=== PATIENT | female | born 1960 | race American Indian/Alaskan Native ===

== ENCOUNTER 2018-04-14 06:05 | Emergency (ER) | payer BC ==
[2018-04-14 17:24] VITALS: BP 156/88
[2018-04-14] MEDS ORDERED: ULTRAM PO ONE (17:33)
[2018-04-14] MEDS ORDERED: TESSALON PERLES PO ONE (17:33)
--- NOTE | 2018-04-14 17:45 | Emergency Department Report ---
ED General Adult HPI - General Chief complaint: Upper Respiratory Infection Time Seen by Provider: 04/14/18 17:04 Source: patient Mode of arrival: Ambulatory Limitations: No Limitations - History of Present Illness Initial comments: Patient presents to the emergency department with a chief complaint of a cough for the last week. Patient describes the cough has been productive in nature and denies fever. Patient states that she is coughed so much that she has chest pain with coughing now. Patient has no complaints -: Gradual Radiation: non-radiation Severity scale (0 -10): 4 Quality: aching, dull Consistency: constant Improves with: none Worsens with: none Associated Symptoms: denies other symptoms Treatments Prior to Arrival: none - Related Data Previous Rx's Medication Instructions Recorded Last Taken Type Cyclobenzaprine HCl [Flexeril 5mg] 5 mg PO TID #14 tablet 06/15/14 Unknown Rx HYDROcodone/APAP 5-325 [[place] 1 each PO Q6HR PRN #14 tablet 06/15/14 Unknown Rx 5/325] ALBUTEROL Inhaler(NF) [VENTOLIN 2 puff IH Q4HR PRN #1 inha 04/14/18 Unknown Rx Inhaler(NF)] Azithromycin [Zithromax Z-ELIZABET] 0 mg PO DAILY #6 tab 04/14/18 Unknown Rx Hydrocodone/Chlorphen P-Stirex 480 ml PO Q12HR PRN #10 merle.er.12h 04/14/18 Unknown Rx [Tussionex Pennkinetic Susp] predniSONE [Prednisone] 50 mg PO QDAY #5 tablet 04/14/18 Unknown Rx traMADol [Ultram] 50 mg PO Q4HR PRN #20 tablet 04/14/18 Unknown Rx Allergies Allergy/AdvReac Type Severity Reaction Status Date / Time codeine Allergy Vomiting Verified 06/15/14 12:58 ED Review of Systems ROS: Stated complaint: Other details as noted in HPI Comment: All other systems reviewed and negative Constitutional: denies: chills, fever Eyes: denies: eye pain, eye discharge, vision change ENT: denies: ear pain, throat pain Respiratory: cough. denies: shortness of breath, wheezing Cardiovascular: denies: chest pain, palpitations Endocrine: no symptoms reported Gastrointestinal: denies: abdominal pain, nausea, diarrhea Genitourinary: denies: urgency, dysuria, discharge Musculoskeletal: denies: back pain, joint swelling, arthralgia Skin: denies: rash, lesions Neurological: denies: headache, weakness, paresthesias Psychiatric: denies: anxiety, depression Hematological/Lymphatic: denies: easy bleeding, easy bruising ED Past Medical Hx - Past Medical History Hx Hypertension: Yes Additional medical history: high chol. - Surgical History Hx Cholecystectomy: Yes - Social History Smoking Status: Current Every Day Smoker Substance Use Type: None - Medications Home Medications: Home Medications Medication Instructions Recorded Confirmed Last Taken Type Cyclobenzaprine HCl [Flexeril 5mg] 5 mg PO TID #14 tablet 06/15/14 Unknown Rx HYDROcodone/APAP 5-325 [[place] 1 each PO Q6HR PRN #14 tablet 06/15/14 Unknown Rx 5/325] ALBUTEROL Inhaler(NF) [VENTOLIN 2 puff IH Q4HR PRN #1 inha 04/14/18 Unknown Rx Inhaler(NF)] Azithromycin [Zithromax Z-ELIZABET] 0 mg PO DAILY #6 tab 04/14/18 Unknown Rx Hydrocodone/Chlorphen P-Stirex 480 ml PO Q12HR PRN #10 merle.er.12h 04/14/18 Unknown Rx [Tussionex Pennkinetic Susp] predniSONE [Prednisone] 50 mg PO QDAY #5 tablet 04/14/18 Unknown Rx traMADol [Ultram] 50 mg PO Q4HR PRN #20 tablet 04/14/18 Unknown Rx ED Physical Exam - General Limitations: No Limitations General appearance: alert, in no apparent distress - Head Head exam: Present: atraumatic, normocephalic - Eye Eye exam: Present: normal appearance - ENT ENT exam: Present: mucous membranes moist - Neck Neck exam: Present: normal inspection - Respiratory Respiratory exam: Present: normal lung sounds bilaterally. Absent: respiratory distress, wheezes, rales - Cardiovascular Cardiovascular Exam: Present: regular rate, normal rhythm. Absent: systolic murmur, diastolic murmur, rubs, gallop - GI/Abdominal GI/Abdominal exam: Present: soft, normal bowel sounds - Extremities Exam Extremities exam: Present: normal inspection - Back Exam Back exam: Present: normal inspection - Neurological Exam Neurological exam: Present: alert, oriented X3, CN II-XII intact. Absent: motor sensory deficit - Psychiatric Psychiatric exam: Present: normal affect, normal mood - Skin Skin exam: Present: warm, dry, intact, normal color. Absent: rash ED Course Vital Signs 04/14/18 04/14/18 07:03 17:23 Temperature 99.0 F 99.1 F Pulse Rate 90 81 Respiratory 18 20 Rate Blood Pressure 170/99 Blood Pressure 156/88 [Right] O2 Sat by Pulse 96 95 Oximetry ED Medical Decision Making - Medical Decision Making Discussed plan of care with patient Discussed with patient the need to stop smoking Critical care attestation.: If time is entered above; I have spent that time in minutes in the direct care of this critically ill patient, excluding procedure time. ED Disposition Clinical Impression: Bronchitis, Encounter for smoking cessation counseling Disposition: TO HOME OR SELFCARE Is pt being admited?: No Does the pt Need Aspirin: No Condition: Stable Instructions: Chronic Bronchitis (ED), Acute Bronchitis (ED) Additional Instructions: return if worse Prescriptions: ALBUTEROL Inhaler(NF) [VENTOLIN Inhaler(NF)] 2 puff IH Q4HR PRN #1 inha PRN Reason: Wheezing Azithromycin [Zithromax Z-ELIZABET] 0 mg PO DAILY #6 tab Hydrocodone/Chlorphen P-Stirex [Tussionex Pennkinetic Susp] 480 ml PO Q12HR PRN #10 merle.er.12h PRN Reason: Cough predniSONE [Prednisone] 50 mg PO QDAY #5 tablet traMADol [Ultram] 50 mg PO Q4HR PRN #20 tablet PRN Reason: Pain Referrals: PRIMARY CARE, [Primary Care Provider] - 3-5 Days [facility] [Outside] - 3-5 Days Forms: Work/School Release Form(ED) Time of Disposition: 17:47
[2018-04-14] MEDS ORDERED: MOTRIN PO ONE (18:06)
[2018-04-14] MEDS ORDERED: MOTRIN ONE (18:08)
== END 2018-04-14 18:16 | disposition home or self-care (01) ==
LOC: ED 06:05
DX: J40 Bronchitis, not specified as acute or chronic (principal); Z71.6 Tobacco abuse counseling; I10 Essential (primary) hypertension; E78.00 Pure hypercholesterolemia, unspecified; F17.200 Nicotine dependence, unspecified, uncomplicated; Z90.49 Acquired absence of other specified parts of digestive tract; Z88.4 Allergy status to anesthetic agent
CPT/HCPCS: 93005; 93010; 99282

== ENCOUNTER 2019-02-21 21:50 | Observation (INO) | payer BC ==
[2019-02-21] MEDS ORDERED: CATAPRES PO ONE (22:53)
[2019-02-21] MEDS ORDERED: SUBLIMAZE IV ONE (22:53)
[2019-02-21] MEDS ORDERED: ZOFRAN IV ONE (22:53)
[2019-02-21] MEDS ORDERED: ANTIVERT PO ONE (22:58)
--- NOTE | 2019-02-21 22:58 | Emergency Department Report ---
HPI - General Chief Complaint: Weakness Time Seen by Provider: 02/21/19 22:19 - HPI HPI: Room 5 The patient is a 4-year-old female presented with a chief complaint syncope. Patient states since this morning she's had dizziness and lightheadedness. Jen brizuela also admits to headache. This evening at approximately 21:40 the patient was sitting on her couch, states her eyes began to roll back in her head. The patient stood up and appeared off-balance so family begin to help her to her bed. Before getting to the bed family states the patient had a syncopal episode and family later in the bed. Family states patient was unresponsive for approximately 2 minutes and this is when EMS was called. Patient admits to occasional substernal chest pain intermittently for the past 6 months. Patient denies shortness of breath or nausea/vomiting. Patient a pain score of 8/10 Location: [See above] Duration: [See above] Quality: [See above] Severity: [See above] Modifying factors: [see above] Context: [see above] Mode of transportation: [not driving] ED Past Medical Hx - Past Medical History Previous Medical History?: Yes Hx Hypertension: Yes Hx Heart Attack/AMI: Yes (mild) Hx Headaches / Migraines: Yes Additional medical history: high chol. - Surgical History Past Surgical History?: Yes Hx Cholecystectomy: Yes Additional Surgical History: hysterectomy - Family History Family history: no significant - Social History Smoking Status: Current Every Day Smoker (1/2 pack per day) Substance Use Type: None (denies illicit drug use) - Medications Home Medications: Home Medications Medication Instructions Recorded Confirmed Last Taken Type Cyclobenzaprine HCl [Flexeril 5mg] 5 mg PO TID #14 tablet 06/15/14 Unknown Rx HYDROcodone/APAP 5-325 [[place] 1 each PO Q6HR PRN #14 tablet 06/15/14 Unknown Rx 5/325] ALBUTEROL Inhaler(NF) [VENTOLIN 2 puff IH Q4HR PRN #1 inha 04/14/18 Unknown Rx Inhaler(NF)] Azithromycin [Zithromax Z-ELIZABET] 0 mg PO DAILY #6 tab 04/14/18 Unknown Rx Hydrocodone/Chlorphen P-Stirex 480 ml PO Q12HR PRN #10 merle.er.12h 04/14/18 Unknown Rx [Tussionex Pennkinetic Susp] predniSONE [Prednisone] 50 mg PO QDAY #5 tablet 04/14/18 Unknown Rx traMADol [Ultram] 50 mg PO Q4HR PRN #20 tablet 04/14/18 Unknown Rx ED Review of Systems ROS: Stated complaint: HYPERTENSION Other details as noted in HPI Constitutional: no symptoms reported Eyes: denies: eye pain ENT: denies: throat pain Respiratory: denies: shortness of breath Cardiovascular: chest pain Endocrine: no symptoms reported Gastrointestinal: denies: nausea, vomiting Genitourinary: denies: dysuria Musculoskeletal: denies: back pain Neurological: headache, vertigo Physical Exam - Physical Exam Vital Signs: Vital Signs 02/21/19 22:06 Temperature 98.4 F Pulse Rate 81 Respiratory 21 Rate Blood Pressure 174/103 Blood Pressure 174/103 [Left] O2 Sat by Pulse 96 Oximetry Physical Exam: GENERAL: The patient is well-developed well-nourished female lying on stretcher not appearing to be in acute distress. [] HEENT: Normocephalic. Atraumatic. Extraocular motions are intact. Patient has moist mucous membranes. No nystagmus noted. Right external auditory canal appears swollen and occluded with exudate. Unable to visualize tympanic membrane NECK: Supple. Trachea midline CHEST/LUNGS: Clear to auscultation. There is no respiratory distress noted. HEART/CARDIOVASCULAR: Regular. There is no tachycardia. There is no gallop rub or murmur. ABDOMEN: Abdomen is soft, nontender. Patient has normal bowel sounds. There is no abdominal distention. SKIN: There is no rash. There is no edema. There is no diaphoresis. NEURO: The patient is awake, alert, and oriented. The patient is cooperative. The patient has no focal neurologic deficits. The patient has normal speech. Cranial nerves II through XII grossly intact, no drift MUSCULOSKELETAL: There is no evidence of acute injury. ED Course Vital Signs 02/21/19 22:06 Temperature 98.4 F Pulse Rate 81 Respiratory 21 Rate Blood Pressure 174/103 Blood Pressure 174/103 [Left] O2 Sat by Pulse 96 Oximetry ED Medical Decision Making - Lab Data Result diagrams: 02/21/19 23:36 02/21/19 23:36 - EKG Data -: EKG Interpreted by Or EKG shows normal: sinus rhythm Rate: normal - EKG Data When compared to previous EKG there are: changes noted Interpretation: nonspecific ST-T wave oswaldo (new biphasic T waves in leads 1 and aVL) - Radiology Data Radiology results: report reviewed (CT head), image reviewed (CT head, chest x- ray) interpreted by me: Chest x-ray-no focal infiltrate, no pneumothorax [facility] [address] [place] [address] Cat Scan Report Signed Patient: HOWARD SOTO MR#: [id number] : 1960 Acct:[id number] Age/Sex: 58 / F ADM Date: 02/21/19 Loc: ED Attending Dr: Ordering Physician: ANA LANGFORD MD Date of Service: 02/21/19 Procedure(s): CT head/brain wo con Accession Number(s): [id number] cc: ANA LANGFORD MD CT HEAD WITHOUT CONTRAST INDICATION: hypertension, headache. TECHNIQUE: All CT scans at this location are performed using CT dose reduction for ALARA by means of automated exposure control. COMPARISON: None available. FINDINGS: HEMORRHAGE: None. EXTRA-AXIAL SPACES: Normal in size and morphology for the patient's age. VENTRICULAR SYSTEM: Normal in size and morphology for the patient's age. BRAIN PARENCHYMA: No acute findings. MIDLINE SHIFT OR HERNIATION: None. ORBITS: Normal as visualized. SOFT TISSUES OF HEAD: Normal. CALVARIUM: Normal. VISUALIZED PARANASAL SINUSES AND MASTOID AIR CELLS: Clear. ADDITIONAL FINDINGS: None. IMPRESSION: 1. No acute intracranial abnormality. Signer Name: Tyrone Bundy MD Signed: 02/21/2019 11:40 PM Workstation Name: [id number] Transcribed By: BRYCE Dictated By: Tyrone Bundy MD Electronically Authenticated By: Tyrone Bundy MD Signed Date/Time: 02/21/19 2340 DD/ 2338 TD/TT: - Differential Diagnosis syncope, hypertensive urgency, ICH, ACS, vertigo Critical care attestation.: If time is entered above; I have spent that time in minutes in the direct care of this critically ill patient, excluding procedure time. ED Disposition Clinical Impression: Syncope, Otitis externa, Vertigo Disposition: DC-09 OP ADMIT IP TO THIS HOSP Is pt being admited?: Yes Does the pt Need Aspirin: Yes Condition: Fair Instructions: Syncope (ED) Referrals: PRIMARY CARE,MD [Primary Care Provider] - 3-5 Days Time of Disposition: 01:18 (hospitalist paged (Dr. Laurita Fabian))
--- NOTE | 2019-02-21 23:45 | Cat Scan Report ---
CT HEAD WITHOUT CONTRAST INDICATION: hypertension, headache. TECHNIQUE: All CT scans at this location are performed using CT dose reduction for ALARA by means of automated e xposure control. COMPARISON: None available. FINDINGS: HEMORRHAGE: None. EXTRA-AXIAL SPACES: Normal in size and morphology for the patient's age. VENTRICULAR SYSTEM: Normal in size and morphology for the patient's age. BRAIN PARENCHYMA: No acute findings. MIDLINE SHIFT OR HERNIATION: None. ORBITS: Normal as visualized. SOFT TISSUES OF HEAD: Normal. CALVARIUM: Normal. VISUALIZED PARANASAL SINUSES AND MASTOID AIR CELLS: Clear. ADDITIONAL FINDINGS: None. IMPRESSION: 1. No acute intracranial abnormality. Signer Name: Tyrone Bundy MD Signed: 02/21/2019 11:40 PM Workstation Name: [id number]
[2019-02-21 23:54] LABS: Basophils # (Auto) 0.1 K/mm3 (0.0-0.1); Basophils % (Auto) 0.9 % (0.0-1.8); Eosinophils # (Auto) 0.3 K/mm3 (0.0-0.4); Eosinophils % (Auto) 4.4 % (0.0-4.3); Hemoglobin 12.9 gm/dl (10.1-14.3); Lymphocytes # (Auto) 2.4 K/mm3 (1.2-5.4); Lymphocytes % (Auto) 38.9 % (13.4-35.0); Monocytes # (Auto) 0.6 K/mm3 (0.0-0.8); Monocytes % (Auto) 9.4 % (0.0-7.3)
[2019-02-22 00:03] LABS: INR 0.96 (0.87-1.13)
[2019-02-22 00:04] LABS: Partial Thromboplastin Time 25.2 Sec. (24.2-36.6)
[2019-02-22 00:10] LABS: Hematocrit 39.7 % (30.3-42.9); Mean Corpuscular HGB Conc 33 % (30-34); Mean Corpuscular Volume 81 fl (79-97); Platelet Count 318 K/mm3 (140-440); Red Blood Count 4.93 M/mm3 (3.65-5.03); Red Cell Distribution Width 16.4 % (13.2-15.2)
[2019-02-22 01:06] LABS: BUN/Creatinine Ratio 20; Blood Urea Nitrogen 14 mg/dL (7-17); Calcium 9.3 mg/dL (8.4-10.2); Hemolysis Index 16
[2019-02-22] MEDS ORDERED: ASPIRIN PO ONE (01:18)
--- NOTE | 2019-02-22 01:28 | XRay Report ---
CHEST 1 VIEW INDICATION: chest pain. COMPARISON: One day prior. FINDINGS: Support devices: Unchanged. Heart: Stable. Lungs/Pleura: No acute pulmonary or pleural findings. IMPRESSION: 1. No significant change. Signer Name: Tyrone Bundy MD Signed: 02/22/2019 1:23 AM Workstation Name: [id number]
[2019-02-22] MEDS: CIPRODEX AD SCH ×2 (01:50→11:44)
[2019-02-22] MEDS ORDERED: TYLENOL PO PRN (02:01)
[2019-02-22] MEDS ORDERED: ZOFRAN IV PRN (02:01)
[2019-02-22] MEDS ORDERED: SODIUM CHLORIDE FLUSH SYRINGE 10 ML IV PRN (02:01)
--- NOTE | 2019-02-22 02:04 | History and Physical Report ---
History of Present Illness Date of examination: 02/22/19 History of present illness: 58 year old woman with history of hypertension, coronary artery disease, hyperlipidemia, migraine was cooking when she felt hot, came diaphoretic and passed out for 2 minutes. She also complain of feeling dizzy Review of systems Constitutional: no weight loss, chills, fever Ears, eyes, nose, mouth and throat: no nasal congestion, no nasal discharge, no sinus pressure, no vision change, no red eye. Neck: No neck pain or rigidity. Cardiovascular: no palpitations, chest pain Respiratory: no cough, shortness of breath Gastrointestinal: no hematochezia, abdominal pain Genitourinary : no frequency , no hematuria Musculoskeletal: no joint swelling or muscle ache Integumentary: no rash, no pruritis Neurological: no parathesias, no focal weakness Endocrine: no cold or heat intolerance, no polyuria or polydipsia Hematologic/Lymphatic: no easy bruising, no easy bleeding, no gland swelling Allergic/Immunologic: no urticaria, no angioedema. PAST MEDICAL HISTORY:hypertension, coronary artery disease, hyperlipidemia, migraine PAST SURGICAL HISTORY: Hysterectomy, cholecystectomy SOCIAL HISTORY: Denies alcohol, drugs, tobacco FAMILY HISTORY: Hypertension Medications and Allergies Allergies Allergy/AdvReac Type Severity Reaction Status Date / Time codeine Allergy Vomiting Verified 06/15/14 12:58 any type of seeds Allergy Unknown Uncoded 02/21/19 22:40 peanuts Allergy Unknown Uncoded 02/21/19 22:40 Home Medications Medication Instructions Recorded Confirmed Last Taken Type Cyclobenzaprine HCl [Flexeril 5mg] 5 mg PO TID #14 tablet 06/15/14 Unknown Rx HYDROcodone/APAP 5-325 [[place] 1 each PO Q6HR PRN #14 tablet 06/15/14 Unknown Rx 5/325] ALBUTEROL Inhaler(NF) [VENTOLIN 2 puff IH Q4HR PRN #1 inha 04/14/18 Unknown Rx Inhaler(NF)] Azithromycin [Zithromax Z-ELIZABET] 0 mg PO DAILY #6 tab 04/14/18 Unknown Rx Hydrocodone/Chlorphen P-Stirex 480 ml PO Q12HR PRN #10 merle.er.12h 04/14/18 Unknown Rx [Tussionex Pennkinetic Susp] predniSONE [Prednisone] 50 mg PO QDAY #5 tablet 04/14/18 Unknown Rx traMADol [Ultram] 50 mg PO Q4HR PRN #20 tablet 04/14/18 Unknown Rx Active Meds: Active Medications Acetaminophen (Tylenol) 650 mg PO Q4H PRN PRN Reason: Pain MILD(1-3)/Fever >100.5/MADRIGAL Ciprofloxacin/Dexamethasone (Ciprodex) 4 drops AD BID GADIEL Last Admin: 02/22/19 01:50 Dose: 4 drops Documented by: Enoxaparin Sodium (Lovenox) 30 mg SUB-Q QDAY [facility] Sodium Chloride (Nacl 0.9% 1000 Ml) 1,000 mls @ 75 mls/hr IV DIRECT GADIEL Ondansetron HCl (Zofran) 4 mg IV Q8H PRN PRN Reason: Nausea And Vomiting Sodium Chloride (Sodium Chloride Flush Syringe 10 Ml) 10 ml IV BID GADIEL Sodium Chloride (Sodium Chloride Flush Syringe 10 Ml) 10 ml IV PRN PRN PRN Reason: LINE FLUSH Exam - Physical Exam Narrative exam: General Apperance: The patient lying in bed, breathing comfortable HEENT: Normocephalic, atraumatic. Pupils equally round and reactive to light, EOMI, no sclericterus or JVD or thyromegaly or nodule. , no carotid bruit, mucous membranes moist, no exudate or erythema Heart: S1-S2, regular is rhythm Lungs: Clear to auscultation bilaterally, breathing comfortable Abdomen: Positive bowel sounds, soft, nontender, nondistended, no organomegaly Extremities: No edema cyanosis clubbing Skin: no rash, nodule, warm and dry Neuro: cranial nerves 2-12 intact, speech is fluent, motor/sensory intact - Constitutional Vitals: Temp Pulse Resp BP Pulse Ox 98.4 F 71 20 173/108 93 02/21/19 22:06 02/22/19 01:00 02/22/19 01:00 02/22/19 01:00 02/22/19 01:00 Results - Labs CBC & Chem 7: 02/21/19 23:36 02/21/19 23:36 Labs: Abnormal lab results 02/21/19 02/21/19 Range/Units 23:36 23:36 MCH 26 L (28-32) pg RDW 16.4 H (13.2-15.2) % Lymph % (Auto) 38.9 H (13.4-35.0) % [place] % (Auto) 9.4 H (0.0-7.3) % Eos % (Auto) 4.4 H (0.0-4.3) % Potassium 3.4 L (3.6-5.0) mmol/L Glucose 126 H (65-100) mg/dL Total Creatine Kinase 468 H (30-135) units/L CK-MB (CK-2) 5.0 H (0.0-4.0) ng/mL - Imaging and Cardiology EKG: image reviewed Chest x-ray: report reviewed CT Scan - head: report reviewed Assessment and Plan Assessment Syncope hypertension coronary artery disease hyperlipidemia migraine Plan Check carotid doppler, echo, orthostatic vitas Start IV fluids, DVT prophalaxis Continue appropiate outpatient medications
[2019-02-22] MEDS ORDERED: NACL 0.9% 1000 ML 1,000 ML ONE (02:14)
[2019-02-22] MEDS ORDERED: NACL 0.9% 1000 ML 1,000 ML IV SCH (03:00)
[2019-02-22 04:09] LABS: Creatine Kinase MB 4.5 ng/mL (0.0-4.0)
[2019-02-22 09:37] LABS: Creatine Kinase MB 4.9 ng/mL (0.0-4.0)
[2019-02-22] MEDS ORDERED: LOVENOX SUB-Q SCH ×2 (10:00)
[2019-02-22] MEDS ORDERED: SODIUM CHLORIDE FLUSH SYRINGE 10 ML IV SCH (10:00)
--- NOTE | 2019-02-22 10:45 | Event Note ---
Date: 02/22/19 Patient was admitted following syncope No source of pain since admission
[2019-02-22 12:14] VITALS: BP 123/80
--- NOTE | 2019-02-22 13:08 | Vascular Lab Report ---
"DUPLEX DOPPLER ULTRASOUND CAROTID, BILATERAL INDICATION: syncope. FINDINGS: RIGHT CAROTID: Mild atherosclerotic plaque. Right CCA velocity: 99 cm/sec. Right ICA peak systolic velocity: 67 cm/sec. ICA/CCA PSV Ratio: 0.7. Right Vertebral Artery: Antegrade flow. LEFT CAROTID: Mild atherosclerotic plaque. Left CCA velocity: 112 cm/sec. Left ICA peak systolic velocity: 90 cm/sec. ICA/CCA PSV Ratio: 0.8. Left Vertebral Artery: Antegrade flow. IMPRESSION: 1. Right Internal Carotid Artery: Less than 50% diameter stenosis. 2. Left Internal Carotid Artery: Less than 50% diameter stenosis. Velocity criteria are extrapolated from diameter data as defined by the Society of Radiologists in Ul trasound Consensus Conference, Radiology 2003; 229;340-346. Degree of Stenosis (%) || ICA PSV (cm/sec) || Plaque estimate (%) || ICA/CCA PSV Ratio Normal <125 None <2.0 <50 <125 <50 <2.0 50-69 125-230 50 2.0-4.0 70 but less than 100 >230 50 >4.0 Near occlusion High, low, or none visible variable Total occlusion None visible; no lumen N/A Signer Name: Ricardo Arroyo MD Signed: 02/22/2019 1:04 PM Workstation Name: [id number]"
--- NOTE | 2019-02-22 16:25 | Discharge Summary ---
Providers - Providers Date of Admission: 02/22/19 02:01 Date of discharge: 02/22/19 Attending physician: KELLIE MALDONADO Primary care physician: [employer] [facility] Hospitalization Reason for admission: Syncope and Vertigo Condition: Fair Pertinent studies: CT head Carotid doppler CXR Hospital course: 58 year old woman with history of hypertension, coronary artery disease, hyperlipidemia, migraine was cooking when she felt hot, came diaphoretic and passed out for 2 minutes. She also complain of dizziness and vertigo. Patient c/o some ear infection.Patient's syncope w/u is negative.Ortho stats reviewed Received meclizine,PT ,no new episobes of syncope or dizziness.Today pt is comfortable,no new complaints,vital signs stable Physical exam unremarkable. Advised fall precautions,smoking cessation and advisd to see ENT upon DC. Pattient is stabble at discharge Dischrge diagnosis: and management: --Syncope: Fall precautions,syncope w/u neg Advised supportive care ,Check ECHO at pmd office. If no improvement advised to see Neurology out pt --Vertigo: Meclizine,advised to see ENT --He is infection/otitis externa right: antibiotics,supportive care ,f/u ENT out pt --Tobacco use: adv to quit --Smoking cessation counseling; spent 10 minutes discussing The risks and complications of ongoing tobacco use Also discussed nicotine patch and smoking cessation Patient will be less understanding Patient is stable at discharge Disposition: DC-01 TO HOME OR SELFCARE Time spent for discharge: 31 min Core Measure Documentation - Palliative Care Palliative Care/ Comfort Measures: Not Applicable - Core Measures Any of the following diagnoses?: none Exam - Constitutional Vitals: Temp Pulse Resp BP Pulse Ox 98.2 F 67 18 123/80 95 02/22/19 11:45 02/22/19 11:45 02/22/19 11:45 02/22/19 11:45 02/22/19 14:34 General appearance: Present: no acute distress, well-nourished - EENT Eyes: Present: PERRL, EOM intact - Neck Neck: Present: supple, normal ROM - Respiratory Respiratory effort: normal Respiratory: negative: rales, rhonchi, wheezing - Cardiovascular Rhythm: regular Heart Sounds: Present: S1 & S2 - Extremities Extremities: no ischemia, pulses intact - Abdominal General gastrointestinal: Present: soft, non-tender, non-distended, normal bowel sounds - Integumentary Integumentary: Present: clear, warm - Musculoskeletal Musculoskeletal: strength equal bilaterally - Psychiatric Psychiatric: appropriate mood/affect, cooperative - Neurologic Neurologic: CNII-XII intact, moves all extremities Plan Activity: advance as tolerated, fall precautions Diet: regular Special Instructions: smoking cessation Additional Instructions: Fall precautions. Advised to see a private intake in 1 -2 weeks. Smoking cessation. Advised to use cane if you feel unsteady/dizzy Follow up with: PRIMARY CAREMD [Primary Care Provider] - 3-5 Days EMANUEL SANFORD MD [Staff Physician] - 7 Days Prescriptions: Meclizine [Antivert] 12.5 mg PO BID PRN #30 tablet PRN Reason: Vertigo Amoxicillin/K Clav Tab [Augmentin 875 mg] 1 tab PO Q12HR #14 tab Ciprofloxacin/Hydrocortisone [Ciprofloxacin HC OTIC] 3 drop OT BID #1 bottle Nicotine [Habitrol] 14 mg TD DAILY #30 patch
== END 2019-02-22 17:00 | disposition home or self-care (01) ==
LOC: ED 21:50 → INTOOBSV 02-22 02:01 → 4A 02-22 02:01
PROVIDERS: ADMIT Internal Medicine; ATTEND Internal Medicine
DX: R55 Syncope and collapse (principal); R42 Dizziness and giddiness; I10 Essential (primary) hypertension; I25.10 Atherosclerotic heart disease of native coronary artery without angina pectoris; E78.5 Hyperlipidemia, unspecified; I25.2 Old myocardial infarction; G43.909 Migraine, unspecified, not intractable, without status migrainosus; F17.200 Nicotine dependence, unspecified, uncomplicated; Z90.49 Acquired absence of other specified parts of digestive tract; Z90.710 Acquired absence of both cervix and uterus; Z82.49 Family history of ischemic heart disease and other diseases of the circulatory system; Z88.5 Allergy status to narcotic agent; Z79.899 Other long term (current) drug therapy
CPT/HCPCS: 36415; 70450; 71045; 80048; 82550; 82553; 84484; 85025; 85610; 85730; 93005; 93010; 93880; 96361; 96374; 96375; 99285; G0378; J2405; J3010; J7030; J1650

== ENCOUNTER 2019-04-03 12:55 | Inpatient (IN) | payer BC ==
--- NOTE | 2019-04-03 14:27 | Event Note ---
ED Screening Note Date of service: 04/03/19 Time: 14:25 ED Screening Note: 58 y/o female comes in for lower abd pain since Friday. No n/v/d. Sharp pain that is constant. This initial assessment/diagnostic orders/clinical plan/treatment(s) is/are subject to change based on patients health status, clinical progression and re- assessment by fellow clinical providers in the ED. Further treatment and workup at subsequent clinical providers discretion. Patient/guardian urged not to elope from the ED as their condition may be serious if not clinically assessed and managed. Initial orders include:
[2019-04-03 15:17] LABS: Basophils # (Auto) 0.1 K/mm3 (0.0-0.1); Eosinophils # (Auto) 0.1 K/mm3 (0.0-0.4); Eosinophils % (Auto) 1.3 % (0.0-4.3); Hemoglobin 12.5 gm/dl (10.1-14.3); Lymphocytes # (Auto) 2.4 K/mm3 (1.2-5.4); Lymphocytes % (Auto) 21.9 % (13.4-35.0); Mean Corpuscular HGB Conc 32 % (30-34); Mean Corpuscular Volume 81 fl (79-97); Monocytes # (Auto) 1.2 K/mm3 (0.0-0.8); Monocytes % (Auto) 10.5 % (0.0-7.3); Platelet Count 292 K/mm3 (140-440); Red Blood Count 4.81 M/mm3 (3.65-5.03)
[2019-04-03 15:23] LABS: Bilirubin,Urine NEG (Negative); Blood,Urine SM (Negative); Color,Urine Yellow (Yellow); Mucus,Urine 1+ /HPF; Protein,Urine <15 mg/dL mg/dL (Negative)
[2019-04-03] MEDS ORDERED: ZOFRAN IV ONE (15:24)
[2019-04-03] MEDS ORDERED: SUBLIMAZE IV ONE ×2 (15:24→16:00)
--- NOTE | 2019-04-03 15:24 | Emergency Department Report ---
ED Abdominal Pain HPI - General Chief Complaint: Abdominal Pain Stated Complaint: ABD PAIN Time Seen by Provider: 04/03/19 14:24 Source: patient Mode of arrival: Ambulatory Limitations: No Limitations - History of Present Illness Initial Comments: Patient is 58 years old female with history of hypertension. Patient presented to the ER complaining of left lower quadrant abdominal pain with no radiation. Patient stated that pain started 5 days ago. Patient denied any nausea vomiting or diarrhea. Patient also denied any fever or chills. No chest pain or shortness of breath. MD Complaint: abdominal pain Location: LLQ Radiation: none Migration to: no migration Severity: moderate Severity scale (0 -10): 5 Quality: sharp Consistency: constant - Related Data Previous Rx's Medication Instructions Recorded Last Taken Type ALBUTEROL Inhaler(NF) [VENTOLIN 2 puff IH Q4HR PRN #1 inha 04/14/18 Unknown Rx Inhaler(NF)] Azithromycin [Zithromax Z-ELIZABET] 0 mg PO DAILY #6 tab 04/14/18 Unknown Rx predniSONE [Prednisone] 50 mg PO QDAY #5 tablet 04/14/18 Unknown Rx traMADol [Ultram 50 MG tab] 50 mg PO Q4HR PRN #20 tablet 04/14/18 Unknown Rx Amoxicillin/K Clav Tab [Augmentin 1 tab PO Q12HR #14 tab 02/22/19 Unknown Rx 875 mg] Ciprofloxacin/Hydrocortisone 3 drop OT BID #1 bottle 02/22/19 Unknown Rx [Ciprofloxacin HC OTIC] Meclizine [Antivert] 12.5 mg PO BID PRN #30 tablet 02/22/19 Unknown Rx Nicotine [Habitrol] 14 mg TD DAILY #30 patch 02/22/19 Unknown Rx Allergies Allergy/AdvReac Type Severity Reaction Status Date / Time codeine Allergy Vomiting Verified 04/03/19 13:25 Penicillins Allergy Hives Verified 04/03/19 13:26 any type of seeds Allergy Unknown Uncoded 04/03/19 13:25 peanuts Allergy Unknown Uncoded 04/03/19 13:25 ED Review of Systems ROS: Stated complaint: ABD PAIN Other details as noted in HPI Comment: All other systems reviewed and negative Constitutional: denies: chills, fever, malaise, weakness Respiratory: denies: cough, orthopnea, shortness of breath Cardiovascular: denies: chest pain, palpitations Gastrointestinal: abdominal pain. denies: nausea, vomiting, diarrhea, constipation, hematemesis, melena, hematochezia Musculoskeletal: denies: back pain Neurological: denies: headache, weakness ED Past Medical Hx - Past Medical History Hx Hypertension: Yes Hx Heart Attack/AMI: Yes (mild) Hx Diabetes: No Hx Headaches / Migraines: Yes Additional medical history: high chol. - Surgical History Hx Cholecystectomy: Yes Additional Surgical History: hysterectomy - Social History Smoking Status: Current Every Day Smoker Substance Use Type: None - Medications Home Medications: Home Medications Medication Instructions Recorded Confirmed Last Taken Type ALBUTEROL Inhaler(NF) [VENTOLIN 2 puff IH Q4HR PRN #1 inha 04/14/18 Unknown Rx Inhaler(NF)] Azithromycin [Zithromax Z-ELIZABET] 0 mg PO DAILY #6 tab 04/14/18 Unknown Rx predniSONE [Prednisone] 50 mg PO QDAY #5 tablet 04/14/18 Unknown Rx traMADol [Ultram 50 MG tab] 50 mg PO Q4HR PRN #20 tablet 04/14/18 Unknown Rx Amoxicillin/K Clav Tab [Augmentin 1 tab PO Q12HR #14 tab 02/22/19 Unknown Rx 875 mg] Ciprofloxacin/Hydrocortisone 3 drop OT BID #1 bottle 02/22/19 Unknown Rx [Ciprofloxacin HC OTIC] Meclizine [Antivert] 12.5 mg PO BID PRN #30 tablet 02/22/19 Unknown Rx Nicotine [Habitrol] 14 mg TD DAILY #30 patch 02/22/19 Unknown Rx ED Physical Exam - General Limitations: No Limitations General appearance: alert, in no apparent distress - Head Head exam: Present: atraumatic, normocephalic, normal inspection - Eye Eye exam: Present: normal appearance - ENT ENT exam: Present: normal exam, mucous membranes moist - Neck Neck exam: Present: normal inspection. Absent: tenderness - Respiratory Respiratory exam: Present: normal lung sounds bilaterally - Cardiovascular Cardiovascular Exam: Present: tachycardia, normal heart sounds - GI/Abdominal GI/Abdominal exam: Present: soft, tenderness (left lower quadrant tenderness), normal bowel sounds. Absent: distended, guarding, rebound, rigid, organomegaly, mass, bruit, pulsatile mass, hernia - Extremities Exam Extremities exam: Present: normal inspection, full ROM, normal capillary refill - Back Exam Back exam: Present: normal inspection, full ROM. Absent: CVA tenderness (R), CVA tenderness (L), muscle spasm, paraspinal tenderness, vertebral tenderness - Neurological Exam Neurological exam: Present: alert, oriented X3, CN II-XII intact, normal gait - Psychiatric Psychiatric exam: Present: normal mood - Skin Skin exam: Present: warm, intact, normal color ED Course Vital Signs 04/03/19 14:23 Temperature 98.5 F Pulse Rate 100 H Respiratory 18 Rate Blood Pressure 143/92 O2 Sat by Pulse 98 Oximetry ED Medical Decision Making - Lab Data Result diagrams: 04/03/19 15:00 04/03/19 15:00 - Radiology Data Radiology results: report reviewed - Medical Decision Making Patient is 58 years old female with history of hypertension. Patient presented to the ER complaining of left lower quadrant abdominal pain with no radiation. Patient stated that pain started 5 days ago. Patient denied any nausea vomiting or diarrhea. Patient also denied any fever or chills. No chest pain or shortness of breath CT abdomen and pelvis with IV contrast showed a descending colon diverticulitis with a small perforation. I discussed the patient is Dr. Sewell, she advised to start patient on Levaquin and Flagyl. I discussed the patient with Dr. Goldman, he agreed to admit the patient to medical service for further management. Critical Care Time: Yes Critical care time in (mins) excluding proc time.: 30 Critical care attestation.: If time is entered above; I have spent that time in minutes in the direct care of this critically ill patient, excluding procedure time. ED Disposition Clinical Impression: Abdominal pain, Diverticulitis of colon with perforation Disposition: OP ADMIT IP TO THIS HOSP Is pt being admited?: Yes Condition: Stable Instructions: Abdominal Pain (ED) Referrals: ITZEL HERRMANN MD [Primary Care Provider] - 3-5 Days
[2019-04-03 15:33] LABS: Alanine Aminotransferase 13 units/L (7-56); BUN/Creatinine Ratio 19; Blood Urea Nitrogen 13 mg/dL (7-17); Calcium 9.5 mg/dL (8.4-10.2); Hemolysis Index 2
--- NOTE | 2019-04-03 16:38 | Cat Scan Report ---
CT ABDOMEN AND PELVIS WITH CONTRAST INDICATION / CLINICAL INFORMATION: MAIN: abdominal pain/left lower quadrant pain and tender 5days. TECHNIQUE: Axial CT images were obtained through the abdomen and pelvis after IV contrast. All CT scans at this location are performed using CT dose reduction for ALARA by means of automated exposure control. COMPARISON: None available. FINDINGS: LOWER CHEST: No significant abnormality. LIVER: 1.3 cm cyst is present left lobe of liver GALLBLADDER: The gallbladder has been removed. BILE DUCTS: No significant abnormality. PANCREAS: No significant abnormality. SPLEEN: No significant abnormality. ADRENALS: No significant abnormality. RIGHT KIDNEY and URETER: 1 cm right renal cyst LEFT KIDNEY and URETER: No significant abnormality. STOMACH and SMALL BOWEL: No significant abnormality. COLON: There is thickening of the descending colon with reticulation of surrounding fat with a focal contained perforation. No evidence of a well defined abscess that would be amenable to percutaneous d rainage. Diverticular disease is present throughout the descending colon and proximal sigmoid colon APPENDIX: No significant abnormality. PERITONEUM: Small ventral wall defects present without evidence of herniation of gastrointestinal con tents LYMPH NODES: No significant adenopathy. AORTA and ARTERIES: No significant abnormality. IVC and VEINS: No significant abnormality. URINARY BLADDER: No significant abnormality. REPRODUCTIVE ORGANS: No significant abnormality. ADDITIONAL FINDINGS: None. SKELETAL SYSTEM: No significant abnormality. IMPRESSION: 1. Diverticulitis descending colon with contain small perforation and bowel wall thickening without d iscrete abscess 2. Ventral wall defect 3. Hepatic cyst 4. Previous cholecystectomy. Signer Name: Erich Collins MD Signed: 04/03/2019 4:34 PM Workstation Name: [id number]
[2019-04-03] MEDS ORDERED: FLAGYL 500 MG/100 ML 500 MG/100 ML BAG IV ONE (16:53)
[2019-04-03] MEDS ORDERED: LEVAQUIN 500MG/100ML 500 MG/100 ML BAG IV ONE (16:53)
[2019-04-03] MEDS ORDERED: ZOFRAN IV PRN ×2 (17:27→21:02)
[2019-04-03] MEDS: DILAUDID IV PRN (17:47)
--- NOTE | 2019-04-03 20:16 | Consultation ---
History of Present Illness Consult date: 04/03/19 Reason for consult: abdominal pain Chief complaint: abdominal pain - History of present illness History of present illness: 58 yo F with hx of HTN presents to ER with 6 days of abdominal pain, sharp, loca prachi in the left upper abdomen. It started suddenly and has gradually gotten worse. No alleviating factors. Eating exacerbates the pain. + nausea but no vomiting. Has not eaten in 3 days. She is having regular bowel movements. No f/c. She had pain like this 5 years ago and was diagnosed with diverticulitis. She was treated as an outpatient. She had a cscope 2-3 years ago which showed polyps. Past History Past Medical History: hypertension Past Surgical History: cholecystectomy, hysterectomy Social history: smoking (1 pack every 2 days). denies: alcohol abuse, prescription drug abuse, IV drug use Family history: no significant family history Medications and Allergies Allergies Allergy/AdvReac Type Severity Reaction Status Date / Time codeine Allergy Vomiting Verified 04/03/19 13:25 Penicillins Allergy Hives Verified 04/03/19 13:26 any type of seeds Allergy Unknown Uncoded 04/03/19 13:25 peanuts Allergy Unknown Uncoded 04/03/19 13:25 Home Medications Medication Instructions Recorded Confirmed Last Taken Type Nicotine [Habitrol] 14 mg TD DAILY #30 patch 02/22/19 04/03/19 Unknown Rx Lisinopril/Hydrochlorothiazide 1 tab PO QDAY 04/03/19 04/03/19 Unknown History [Zestoretic 20-12.5 mg] Metoprolol [Lopressor TAB] 50 mg PO QDAY 04/03/19 04/03/19 Unknown History Active Meds: Active Medications Enoxaparin Sodium (Lovenox) 40 mg SUB-Q DAILY GADIEL Hydromorphone HCl (Dilaudid) 1 mg IV Q3HR PRN PRN Reason: Pain, Moderate (4-6) Last Admin: 04/03/19 17:47 Dose: 1 mg Documented by: Sodium Chloride (Nacl 0.9% 1000 Ml) 1,000 mls @ 125 mls/hr IV DIRECT GADIEL Metronidazole (Flagyl 500 Mg/100 Ml) 500 mg in 100 mls @ 100 mls/hr IV Q8HR GADIEL; Protocol Levofloxacin/Dextrose (Levaquin 500mg/100ml) 500 mg in 100 mls @ 100 mls/hr IV Q24HR GADIEL; Protocol Ondansetron HCl (Zofran) 4 mg IV Q8H PRN PRN Reason: Nausea And Vomiting Last Admin: 04/03/19 17:48 Dose: 4 mg Documented by: Review of Systems All systems: negative (10 pt ROS performed and negative except for that listed in HPI) Exam Vital Signs Temp Pulse Resp BP Pulse Ox 98.5 F 100 H 18 143/92 98 04/03/19 14:23 04/03/19 14:23 04/03/19 14:23 04/03/19 14:23 04/03/19 14:23 Narrative exam: Gen: AAOx3. NAd ENT: no scleral icterus or conjunctival pallor CV; s1, S2+ resp; even and unlabored Abd: soft, ND, + LUQ TTP. + voluntary guarding. No rebound, rigidity Ext: no c/c/e Results - Labs 04/03/19 15:00 04/03/19 15:00 Abnormal lab results 04/03/19 04/03/19 Range/Units 15:00 15:00 WBC 11.1 H (4.5-11.0) K/mm3 MCH 26 L (28-32) pg RDW 17.0 H (13.2-15.2) % [place] % (Auto) 10.5 H (0.0-7.3) % [place] # 1.2 H (0.0-0.8) K/mm3 Glucose 102 H (65-100) mg/dL Diabetes panel 04/03/19 Range/Units 15:00 Sodium 142 (137-145) mmol/L Potassium 4.0 (3.6-5.0) mmol/L Chloride 101.6 (98-107) mmol/L Carbon Dioxide 29 (22-30) mmol/L BUN 13 (7-17) mg/dL Creatinine 0.7 (0.7-1.2) mg/dL Glucose 102 H (65-100) mg/dL Calcium 9.5 (8.4-10.2) mg/dL AST 17 (5-40) units/L ALT 13 (7-56) units/L Alkaline Phosphatase 73 (35-129) units/L Total Protein 7.4 (6.3-8.2) g/dL Albumin 4.0 (3.9-5) g/dL Calcium panel 04/03/19 Range/Units 15:00 Calcium 9.5 (8.4-10.2) mg/dL Albumin 4.0 (3.9-5) g/dL Pituitary panel 04/03/19 Range/Units 15:00 Sodium 142 (137-145) mmol/L Potassium 4.0 (3.6-5.0) mmol/L Chloride 101.6 (98-107) mmol/L Carbon Dioxide 29 (22-30) mmol/L BUN 13 (7-17) mg/dL Creatinine 0.7 (0.7-1.2) mg/dL Glucose 102 H (65-100) mg/dL Calcium 9.5 (8.4-10.2) mg/dL Adrenal panel 04/03/19 Range/Units 15:00 Sodium 142 (137-145) mmol/L Potassium 4.0 (3.6-5.0) mmol/L Chloride 101.6 (98-107) mmol/L Carbon Dioxide 29 (22-30) mmol/L BUN 13 (7-17) mg/dL Creatinine 0.7 (0.7-1.2) mg/dL Glucose 102 H (65-100) mg/dL Calcium 9.5 (8.4-10.2) mg/dL Total Bilirubin 0.30 (0.1-1.2) mg/dL AST 17 (5-40) units/L ALT 13 (7-56) units/L Alkaline Phosphatase 73 (35-129) units/L Total Protein 7.4 (6.3-8.2) g/dL Albumin 4.0 (3.9-5) g/dL - Imaging CT scan - abdomen: report reviewed, image reviewed CT scan - pelvis: report reviewed, image reviewed Assessment and Plan 58 yo F with acute diverticulitis of descending colon with localized pe rforation, without abscess Plan: 1. NPO 2. IVF 3. prn pain and nausea control 4. IV abx - on levaquin and flagyl 5. DVT ppx 6. Will follow up in am Thank you, please call with questions.
--- NOTE | 2019-04-03 20:57 | History and Physical Report ---
History of Present Illness Date of examination: 04/03/19 Date of admission: 04/03/19 16:54 Chief complaint: Left lower quadrant pain for 5 days History of present illness: 58-year-old -[place] female with history of hypertension and asthma comes in for left lower quadrant pain which started 5 days ago. Pain is intermittent and sharp in nature. Low-grade fever present. No chills. Pain is about 8 on a scale of 1-10. Nonradiating. No nausea. No constipation. No blood per rectum. She had similar episode 5 years ago and was treated as diverticulitis. No recent travel. No exacerbating or relieving factors. Past Medical History Hypertension: Yes Heart Attack/AMI: Yes (mild) Headaches / Migraines: Yes Additional medical history: high chol. Surgical History Hx Cholecystectomy: Yes Additional Surgical History: hysterectomy Social History Smoking Status: Current Every Day Smoker Substance Use Type: None Family history Hypertension Medications Home Medications: Home Medications Medication Instructions Recorded Confirmed Last Taken Type ALBUTEROL Inhaler(NF) [VENTOLIN 2 puff IH Q4HR PRN #1 inha 04/14/18 Unknown Rx Inhaler(NF)] Azithromycin [Zithromax Z-ELIZABET] 0 mg PO DAILY #6 tab 04/14/18 Unknown Rx predniSONE [Prednisone] 50 mg PO QDAY #5 tablet 04/14/18 Unknown Rx traMADol [Ultram 50 MG tab] 50 mg PO Q4HR PRN #20 tablet 04/14/18 Unknown Rx Amoxicillin/K Clav Tab [Augmentin 1 tab PO Q12HR #14 tab 02/22/19 Unknown Rx 875 mg] Ciprofloxacin/Hydrocortisone 3 drop OT BID #1 bottle 02/22/19 Unknown Rx [Ciprofloxacin HC OTIC] Meclizine [Antivert] 12.5 mg PO BID PRN #30 tablet 02/22/19 Unknown Rx Nicotine [Habitrol] 14 mg TD DAILY #30 patch 02/22/19 Unknown Rx Review of Systems ROS: Stated complaint: ABD PAIN Other details as noted in HPI Comment: All other systems reviewed and negative Constitutional: denies: chills, fever, malaise, weakness Respiratory: denies: cough, orthopnea, shortness of breath Cardiovascular: denies: chest pain, palpitations Gastrointestinal: abdominal pain. denies: nausea, vomiting, diarrhea, constipation, hematemesis, melena, hematochezia Musculoskeletal: denies: back pain Neurological: denies: headache, weakness 14 point review of systems done and otherwise negative. Past History Past Medical History: hypertension Past Surgical History: cholecystectomy, hysterectomy Social history: smoking (1 pack every 2 days). denies: alcohol abuse, prescription drug abuse, IV drug use Family history: no significant family history Medications and Allergies Allergies Allergy/AdvReac Type Severity Reaction Status Date / Time codeine Allergy Vomiting Verified 04/03/19 13:25 Penicillins Allergy Hives Verified 04/03/19 13:26 any type of seeds Allergy Unknown Uncoded 04/03/19 13:25 peanuts Allergy Unknown Uncoded 04/03/19 13:25 Home Medications Medication Instructions Recorded Confirmed Last Taken Type Nicotine [Habitrol] 14 mg TD DAILY #30 patch 02/22/19 04/03/19 Unknown Rx Lisinopril/Hydrochlorothiazide 1 tab PO QDAY 04/03/19 04/03/19 Unknown History [Zestoretic 20-12.5 mg] Metoprolol [Lopressor TAB] 50 mg PO QDAY 04/03/19 04/03/19 Unknown History Active Meds: Active Medications Enoxaparin Sodium (Lovenox) 40 mg SUB-Q DAILY GADIEL Hydromorphone HCl (Dilaudid) 1 mg IV Q3HR PRN PRN Reason: Pain, Moderate (4-6) Last Admin: 04/03/19 17:47 Dose: 1 mg Documented by: Sodium Chloride (Nacl 0.9% 1000 Ml) 1,000 mls @ 125 mls/hr IV DIRECT GADIEL Metronidazole (Flagyl 500 Mg/100 Ml) 500 mg in 100 mls @ 100 mls/hr IV Q8HR GADIEL; Protocol Levofloxacin/Dextrose (Levaquin 500mg/100ml) 500 mg in 100 mls @ 100 mls/hr IV Q24HR GADIEL; Protocol Ondansetron HCl (Zofran) 4 mg IV Q8H PRN PRN Reason: Nausea And Vomiting Last Admin: 04/03/19 17:48 Dose: 4 mg Documented by: Exam - Constitutional Vitals: Temp Pulse Resp BP Pulse Ox 98.5 F 84 16 164/95 95 04/03/19 14:23 04/03/19 17:58 04/03/19 17:58 04/03/19 17:58 04/03/19 17:58 General appearance: Present: no acute distress, well-nourished - EENT Eyes: Present: PERRL ENT: hearing intact, clear oral mucosa - Neck Neck: Present: supple, normal ROM - Respiratory Respiratory effort: normal Respiratory: bilateral: CTA - Cardiovascular Heart rate: 76 Rhythm: regular Heart Sounds: Present: S1 & S2. Absent: rub, click - Extremities Extremities: no ischemia, pulses intact, pulses symmetrical, No edema Peripheral Pulses: within normal limits - Abdominal General gastrointestinal: Present: soft, tender (left lower quadrant associated with guarding and tenderness.), non-distended, normal bowel sounds Localized gastrointestinal: tender: LLQ, guarding: LLQ, rebound: LLQ Female genitourinary: Present: normal - Rectal Rectal Exam: stool brown - Integumentary Integumentary: Present: clear, warm, dry - Musculoskeletal Musculoskeletal: gait normal, strength equal bilaterally - Psychiatric Psychiatric: appropriate mood/affect, intact judgment & insight - Neurologic Neurologic: CNII-XII intact, moves all extremities Results - Labs CBC & Chem 7: 04/03/19 15:00 04/03/19 15:00 Labs: Laboratory Last Values WBC 11.1 K/mm3 (4.5-11.0) H 04/03/19 15:00 RBC 4.81 M/mm3 (3.65-5.03) 04/03/19 15:00 Hgb 12.5 gm/dl (10.1-14.3) 04/03/19 15:00 Hct 39.0 % (30.3-42.9) 04/03/19 15:00 MCV 81 fl (79-97) 04/03/19 15:00 MCH 26 pg (28-32) L 04/03/19 15:00 MCHC 32 % (30-34) 04/03/19 15:00 RDW 17.0 % (13.2-15.2) H 04/03/19 15:00 Plt Count 292 K/mm3 (140-440) 04/03/19 15:00 Lymph % (Auto) 21.9 % (13.4-35.0) 04/03/19 15:00 [place] % (Auto) 10.5 % (0.0-7.3) H 04/03/19 15:00 Eos % (Auto) 1.3 % (0.0-4.3) 04/03/19 15:00 Baso % (Auto) 1.0 % (0.0-1.8) 04/03/19 15:00 Lymph # 2.4 K/mm3 (1.2-5.4) 04/03/19 15:00 [place] # 1.2 K/mm3 (0.0-0.8) H 04/03/19 15:00 Eos # 0.1 K/mm3 (0.0-0.4) 04/03/19 15:00 Baso # 0.1 K/mm3 (0.0-0.1) 04/03/19 15:00 Seg Neutrophils % 65.3 % (40.0-70.0) 04/03/19 15:00 Seg Neutrophils # 7.2 K/mm3 (1.8-7.7) 04/03/19 15:00 Sodium 142 mmol/L (137-145) 04/03/19 15:00 Potassium 4.0 mmol/L (3.6-5.0) 04/03/19 15:00 Chloride 101.6 mmol/L (98-107) 04/03/19 15:00 Carbon Dioxide 29 mmol/L (22-30) 04/03/19 15:00 15 mmol/L 04/03/19 15:00 BUN 13 mg/dL (7-17) 04/03/19 15:00 0.7 mg/dL (0.7-1.2) 04/03/19 15:00 Estimated GFR > 60 ml/min 04/03/19 15:00 19 % 04/03/19 15:00 Glucose 102 mg/dL (65-100) H 04/03/19 15:00 Calcium 9.5 mg/dL (8.4-10.2) 04/03/19 15:00 0.30 mg/dL (0.1-1.2) 04/03/19 15:00 AST 17 units/L (5-40) 04/03/19 15:00 ALT 13 units/L (7-56) 04/03/19 15:00 73 units/L (35-129) 04/03/19 15:00 7.4 g/dL (6.3-8.2) 04/03/19 15:00 4.0 g/dL (3.9-5) 04/03/19 15:00 1.2 % 04/03/19 15:00 17 units/L (13-60) 04/03/19 15:00 Yellow (Yellow) 04/03/19 14:17 Slightly-cloudy (Clear) 04/03/19 14:17 5.0 (5.0-7.0) 04/03/19 14:17 Ur Specific [place] 1.023 (1.003-1.030) 04/03/19 14:17 <15 mg/dl mg/dL (Negative) 04/03/19 14:17 Neg mg/dL (Negative) 04/03/19 14:17 Neg mg/dL (Negative) 04/03/19 14:17 Sm (Negative) 04/03/19 14:17 Neg (Negative) 04/03/19 14:17 Neg (Negative) 04/03/19 14:17 2.0 mg/dL (<2.0) 04/03/19 14:17 Ur Leukocyte Esterase Neg (Negative) 04/03/19 14:17 3.0 /HPF (0.0-6.0) 04/03/19 14:17 4.0 /HPF (0.0-6.0) 04/03/19 14:17 U Epithel Cells (Auto) 3.0 /HPF (0-13.0) 04/03/19 14:17 1+ /HPF 04/03/19 14:17 Short CBC 04/03/19 Range/Units 15:00 WBC 11.1 H (4.5-11.0) K/mm3 Hgb 12.5 (10.1-14.3) gm/dl Hct 39.0 (30.3-42.9) % Plt Count 292 (140-440) K/mm3 BMP 04/03/19 15:00 Sodium 142 Potassium 4.0 Chloride 101.6 Carbon Dioxide 29 BUN 13 Creatinine 0.7 Glucose 102 H Calcium 9.5 Liver Function 04/03/19 Range/Units 15:00 Total Bilirubin 0.30 (0.1-1.2) mg/dL AST 17 (5-40) units/L ALT 13 (7-56) units/L Alkaline Phosphatase 73 (35-129) units/L Albumin 4.0 (3.9-5) g/dL Urine 04/03/19 Range/Units 14:17 Urine Color Yellow (Yellow) Urine pH 5.0 (5.0-7.0) Ur Specific [place] 1.023 (1.003-1.030) Urine Protein <15 mg/dl (Negative) mg/dL Urine Glucose (UA) Neg (Negative) mg/dL - Imaging and Cardiology EKG: report reviewed Imaging and Cardiology: Abdominal CAT scan IMPRESSION: 1. Diverticulitis descending colon with contain small perforation and bowel wall thickening without discrete abscess 2. Ventral wall defect 3. Hepatic cyst 4. Previous cholecystectomy. Signer Name: Erich Collins MD Assessment and Plan Advance Directives: Yes (full code) VTE prophylaxis?: Chemical Plan of care discussed with patient/family: Yes - Patient Problems (1) Acute diverticulitis Current Visit: Yes Status: Acute Plan to address problem: Patient is kept nothing by mouth IV antibiotics in the form of Zosyn. Surgery consulted (2) Hypertension Current Visit: Yes Status: Chronic Qualifiers: Hypertension type: essential hypertension Qualified Code(s): I10 - Essential (primary) hypertension Plan to address problem: Patient initiated on low-dose Catapres patch (3) Nicotine dependence Current Visit: Yes Status: Chronic Qualifiers: Nicotine product type: cigarettes Plan to address problem: NicoDerm patch initiated (4) DVT prophylaxis Current Visit: Yes Status: Acute Plan to address problem: On Lovenox and GI prophylaxis
[2019-04-03] MEDS ORDERED: REGLAN IV PRN (21:02)
[2019-04-03] MEDS ORDERED: TYLENOL PO PRN (21:02)
[2019-04-03] MEDS ORDERED: SODIUM CHLORIDE FLUSH SYRINGE 10 ML IV PRN (21:02)
[2019-04-03] MEDS: PEPCID IV SCH (21:40)
[2019-04-03] MEDS: FLAGYL 500 MG/100 ML 500 MG/100 ML BAG IV SCH (21:40)
[2019-04-03] MEDS: SODIUM CHLORIDE FLUSH SYRINGE 10 ML IV SCH (21:41)
[2019-04-03] MEDS ORDERED: CATAPRES-TTS PATCH TD SCH (22:00)
[2019-04-03] MEDS: HABITROL TD SCH (23:41)
[2019-04-04] MEDS: NACL 0.9% 1000 ML 1,000 ML IV SCH ×3 (02:47→22:08)
[2019-04-04] MEDS: DILAUDID IV PRN ×2 (04:41→13:15)
[2019-04-04 04:58] LABS: Basophils # (Auto) 0.2 K/mm3 (0.0-0.1); Basophils % (Auto) 2.3 % (0.0-1.8); Eosinophils # (Auto) 0.1 K/mm3 (0.0-0.4); Eosinophils % (Auto) 1.5 % (0.0-4.3); Hematocrit 34.4 % (30.3-42.9); Lymphocytes # (Auto) 1.7 K/mm3 (1.2-5.4); Lymphocytes % (Auto) 21.6 % (13.4-35.0); Mean Corpuscular HGB Conc 32 % (30-34); Mean Corpuscular Volume 81 fl (79-97); Monocytes # (Auto) 0.8 K/mm3 (0.0-0.8); Monocytes % (Auto) 10.5 % (0.0-7.3); Platelet Count 271 K/mm3 (140-440); Red Blood Count 4.25 M/mm3 (3.65-5.03); Red Cell Distribution Width 17.1 % (13.2-15.2)
[2019-04-04 05:08] LABS: Alanine Aminotransferase 7 units/L (7-56); Albumin 3.3 g/dL (3.9-5); BUN/Creatinine Ratio 15; Blood Urea Nitrogen 9 mg/dL (7-17); Calcium 8.4 mg/dL (8.4-10.2); Hemolysis Index 2
[2019-04-04] MEDS: FLAGYL 500 MG/100 ML 500 MG/100 ML BAG IV SCH ×3 (05:36→22:09)
--- NOTE | 2019-04-04 10:34 | Progress Note ---
Assessment and Plan 58 yo F with acute diverticulitis of descending colon with localized perforation, without abscess Plan: Abdominal pain improving. AFebrile. WBC trended down to 8. 1. start clear liquid diet 2. IVF 3. prn pain and nausea control 4. IV abx - on levaquin and flagyl 5. DVT ppx Reviewed plan with patient. Will follow D/W Dr. Liz. Thank you, please call with questions. Subjective Date of service: 04/04/19 Narrative: Pt seen and examined. States she feels a little bit better. Had one episode of emesis overnight immediately after receiving morphine. No f/c. She feels hungry Objective Vital Signs - 12hr 04/04/19 04/04/19 05:12 08:50 Temperature 98.8 F Pulse Rate 71 Respiratory 16 Rate Blood Pressure 121/69 O2 Sat by Pulse 93 97 Oximetry - General physical appearance Narrative Exam: Gen: AAOx3. NAD CV: S1, S2+ resp: even and unlabored Abd: soft, ND, mild TTP in LUQ. No r/r/g Ext: no c/c/e - Labs 04/04/19 04:17 04/04/19 04:17 Diabetes panel 04/03/19 04/03/19 04/04/19 Range/Units 15:00 21:10 04:17 Sodium 142 142 (137-145) mmol/L Potassium 4.0 3.7 (3.6-5.0) mmol/L Chloride 101.6 104.6 (98-107) mmol/L Carbon Dioxide 29 26 (22-30) mmol/L BUN 13 9 (7-17) mg/dL Creatinine 0.7 0.6 L (0.7-1.2) mg/dL Glucose 102 H 102 H (65-100) mg/dL Hemoglobin A1c 5.7 (4-6) % Calcium 9.5 8.4 (8.4-10.2) mg/dL AST 17 15 (5-40) units/L ALT 13 7 (7-56) units/L Alkaline Phosphatase 73 69 (35-129) units/L Total Protein 7.4 6.0 L (6.3-8.2) g/dL Albumin 4.0 3.3 L (3.9-5) g/dL Calcium panel 04/03/19 04/04/19 Range/Units 15:00 04:17 Calcium 9.5 8.4 (8.4-10.2) mg/dL Albumin 4.0 3.3 L (3.9-5) g/dL Pituitary panel 04/03/19 04/04/19 Range/Units 15:00 04:17 Sodium 142 142 (137-145) mmol/L Potassium 4.0 3.7 (3.6-5.0) mmol/L Chloride 101.6 104.6 (98-107) mmol/L Carbon Dioxide 29 26 (22-30) mmol/L BUN 13 9 (7-17) mg/dL Creatinine 0.7 0.6 L (0.7-1.2) mg/dL Glucose 102 H 102 H (65-100) mg/dL Calcium 9.5 8.4 (8.4-10.2) mg/dL Adrenal panel 04/03/19 04/04/19 Range/Units 15:00 04:17 Sodium 142 142 (137-145) mmol/L Potassium 4.0 3.7 (3.6-5.0) mmol/L Chloride 101.6 104.6 (98-107) mmol/L Carbon Dioxide 29 26 (22-30) mmol/L BUN 13 9 (7-17) mg/dL Creatinine 0.7 0.6 L (0.7-1.2) mg/dL Glucose 102 H 102 H (65-100) mg/dL Calcium 9.5 8.4 (8.4-10.2) mg/dL Total Bilirubin 0.30 0.40 (0.1-1.2) mg/dL AST 17 15 (5-40) units/L ALT 13 7 (7-56) units/L Alkaline Phosphatase 73 69 (35-129) units/L Total Protein 7.4 6.0 L (6.3-8.2) g/dL Albumin 4.0 3.3 L (3.9-5) g/dL
[2019-04-04] MEDS: HABITROL TD SCH (11:09)
[2019-04-04] MEDS: PEPCID IV SCH ×2 (11:10→22:10)
[2019-04-04] MEDS: LEVAQUIN 500MG/100ML 500 MG/100 ML BAG IV SCH (11:10)
[2019-04-04] MEDS: LOVENOX SUB-Q SCH (11:10)
[2019-04-04] MEDS: SODIUM CHLORIDE FLUSH SYRINGE 10 ML IV SCH ×2 (11:11→22:10)
--- NOTE | 2019-04-04 14:46 | Progress Note ---
Assessment and Plan - Patient Problems (1) Abdominal pain Current Visit: Yes Status: Acute Plan to address problem: Abdominal pain secondary to acute diverticulitis and 10 units Flagyl and Levaquin for antibiotics. Continue supportive care for nausea rectal pain. (2) Acute diverticulitis Current Visit: Yes Status: Acute Plan to address problem: Continue present antibiotics as mentioned above. Bowel rest supportive care. Evaluated diet for patient continue supportive care with pain control antibiotic coverage Levaquin and Flagyl. Nausea supportive care. (3) Diverticulitis of colon with perforation Current Visit: Yes Status: Acute (4) Hypertension Current Visit: Yes Status: Chronic Qualifiers: Hypertension type: essential hypertension Qualified Code(s): I10 - Essential (primary) hypertension Plan to address problem: She has had optimal control of blood pressure. Continue Catapres patch. Patient is currently nothing by mouth. (5) Tobacco abuse counseling Current Visit: No Status: Acute Plan to address problem: Continued tobacco abuse counseling. History Interval history: Patient and family at bedside all questions and concerns answered. Patient still has abdominal pain guarding especially on the left side. She denies any rectal pain no chest pain or shortness of breath. Pain is localized to the left lower quadrant. He did have one small normal bowel movement. Her last Hospital course uncomplicated today. Hospitalist Physical - Constitutional Vitals: Temp Pulse Resp BP Pulse Ox 99.6 F 81 20 130/76 95 04/04/19 11:45 04/04/19 11:45 04/04/19 11:45 04/04/19 11:45 04/04/19 11:45 General appearance: Present: mild distress, well-nourished - EENT Eyes: Present: PERRL, EOM intact ENT: hearing intact, clear oral mucosa, dentition normal, no oropharyngeal erythema, no poor dentition, no thrush - Neck Neck: Present: supple, normal ROM - Respiratory Respiratory: bilateral: CTA - Cardiovascular Rhythm: regular Heart Sounds: Present: S1 & S2 - Extremities Extremities: no ischemia, pulses intact, pulses symmetrical, No edema, normal temperature, normal color, Full ROM Peripheral Pulses: within normal limits - Abdominal General gastrointestinal: tender, hypoactive bowel sounds, other (guarding), no distended, no rigid, no hepatomegaly, no splenomegaly Localized gastrointestinal: tender: LUQ, guarding: LUQ - Integumentary Integumentary: Present: clear, warm, dry - Psychiatric Psychiatric: appropriate mood/affect, intact judgment & insight, memory intact - Neurologic Neurologic: CNII-XII intact, no focal deficits, moves all extremities Results - Labs CBC & Chem 7: 04/04/19 04:17 04/04/19 04:17 Labs: Laboratory Last Values WBC 8.0 K/mm3 (4.5-11.0) 04/04/19 04:17 RBC 4.25 M/mm3 (3.65-5.03) 04/04/19 04:17 Hgb 11.0 gm/dl (10.1-14.3) 04/04/19 04:17 Hct 34.4 % (30.3-42.9) 04/04/19 04:17 MCV 81 fl (79-97) 04/04/19 04:17 MCH 26 pg (28-32) L 04/04/19 04:17 MCHC 32 % (30-34) 04/04/19 04:17 RDW 17.1 % (13.2-15.2) H 04/04/19 04:17 Plt Count 271 K/mm3 (140-440) 04/04/19 04:17 Lymph % (Auto) 21.6 % (13.4-35.0) 04/04/19 04:17 [place] % (Auto) 10.5 % (0.0-7.3) H 04/04/19 04:17 Eos % (Auto) 1.5 % (0.0-4.3) 04/04/19 04:17 Baso % (Auto) 2.3 % (0.0-1.8) H 04/04/19 04:17 Lymph # 1.7 K/mm3 (1.2-5.4) 04/04/19 04:17 [place] # 0.8 K/mm3 (0.0-0.8) 04/04/19 04:17 Eos # 0.1 K/mm3 (0.0-0.4) 04/04/19 04:17 Baso # 0.2 K/mm3 (0.0-0.1) H 04/04/19 04:17 Seg Neutrophils % 64.1 % (40.0-70.0) 04/04/19 04:17 Seg Neutrophils # 5.1 K/mm3 (1.8-7.7) 04/04/19 04:17 Sodium 142 mmol/L (137-145) 04/04/19 04:17 Potassium 3.7 mmol/L (3.6-5.0) 04/04/19 04:17 Chloride 104.6 mmol/L (98-107) 04/04/19 04:17 Carbon Dioxide 26 mmol/L (22-30) 04/04/19 04:17 15 mmol/L 04/04/19 04:17 BUN 9 mg/dL (7-17) 04/04/19 04:17 0.6 mg/dL (0.7-1.2) L 04/04/19 04:17 Estimated GFR > 60 ml/min 04/04/19 04:17 15 % 04/04/19 04:17 Glucose 102 mg/dL (65-100) H 04/04/19 04:17 5.7 % (4-6) 04/03/19 21:10 Calcium 8.4 mg/dL (8.4-10.2) 04/04/19 04:17 0.40 mg/dL (0.1-1.2) 04/04/19 04:17 AST 15 units/L (5-40) 04/04/19 04:17 ALT 7 units/L (7-56) 04/04/19 04:17 69 units/L (35-129) 04/04/19 04:17 6.0 g/dL (6.3-8.2) L 04/04/19 04:17 3.3 g/dL (3.9-5) L 04/04/19 04:17 1.2 % 04/04/19 04:17 17 units/L (13-60) 04/03/19 15:00 Yellow (Yellow) 04/03/19 14:17 Slightly-cloudy (Clear) 04/03/19 14:17 5.0 (5.0-7.0) 04/03/19 14:17 Ur Specific [place] 1.023 (1.003-1.030) 04/03/19 14:17 <15 mg/dl mg/dL (Negative) 04/03/19 14:17 Neg mg/dL (Negative) 04/03/19 14:17 Neg mg/dL (Negative) 04/03/19 14:17 Sm (Negative) 04/03/19 14:17 Neg (Negative) 04/03/19 14:17 Neg (Negative) 04/03/19 14:17 2.0 mg/dL (<2.0) 04/03/19 14:17 Ur Leukocyte Esterase Neg (Negative) 04/03/19 14:17 3.0 /HPF (0.0-6.0) 04/03/19 14:17 4.0 /HPF (0.0-6.0) 04/03/19 14:17 U Epithel Cells (Auto) 3.0 /HPF (0-13.0) 04/03/19 14:17 1+ /HPF 04/03/19 14:17 Active Medications - Current Medications Current Medications: Generic Name Dose Route Start Last Admin Trade Name Freq PRN Reason Stop Dose Admin Acetaminophen 650 mg 04/03/19 21:02 Tylenol PO Q4H PRN Pain MILD(1-3)/Fever >100.5/MADRIGAL Clonidine HCl 0.1 mg 04/03/19 22:00 04/03/19 22:10 Catapres-Tts Patch TD 0.1 mg Sa GADIEL Administration Enoxaparin Sodium 40 mg 04/04/19 10:00 04/04/19 11:10 Lovenox SUB-Q 40 mg DAILY GADIEL Administration Famotidine 20 mg 04/03/19 22:00 04/04/19 11:10 Pepcid IV 20 mg BID GADIEL Administration Hydromorphone HCl 1 mg 04/03/19 17:32 04/04/19 13:15 Dilaudid IV 1 mg Q3HR PRN Administration Pain, Moderate (4-6) Sodium Chloride 1,000 mls @ 125 mls/hr 04/03/19 18:00 04/04/19 02:47 Nacl 0.9% 1000 Ml IV 125 mls/hr DIRECT GADIEL Administration Metronidazole 500 mg in 100 mls @ 100 mls/hr 04/03/19 22:00 04/04/19 13:20 Flagyl 500 Mg/100 Ml IV 100 mls/hr Q8HR GADIEL Administration Protocol Levofloxacin/Dextrose 500 mg in 100 mls @ 100 mls/hr 04/04/19 10:00 04/04/19 11:10 Levaquin 500mg/100ml IV 100 mls/hr Q24HR GADIEL Administration Protocol Metoclopramide HCl 10 mg 04/03/19 21:02 04/04/19 04:41 Reglan IV 10 mg Q6H PRN Administration Nausea And Vomiting Nicotine 14 mg 04/03/19 22:00 04/04/19 11:09 Habitrol TD 14 mg DAILY GADIEL Administration Ondansetron HCl 4 mg 04/03/19 17:27 04/03/19 17:48 Zofran IV 4 mg Q8H PRN Administration Nausea And Vomiting Ondansetron HCl 4 mg 04/03/19 21:02 Zofran IV Q8H PRN Nausea And Vomiting Sodium Chloride 10 ml 04/03/19 22:00 04/04/19 11:11 Sodium Chloride Flush Syringe 10 Ml IV 10 ml BID GADIEL Administration Sodium Chloride 10 ml 04/03/19 21:02 Sodium Chloride Flush Syringe 10 Ml IV PRN PRN LINE FLUSH
[2019-04-04 15:57] LABS: Alanine Aminotransferase 14 units/L (7-56); Albumin 3.4 g/dL (3.9-5); BUN/Creatinine Ratio 13; Blood Urea Nitrogen 8 mg/dL (7-17); Calcium 8.7 mg/dL (8.4-10.2); Hemolysis Index 5
[2019-04-05] MEDS: FLAGYL 500 MG/100 ML 500 MG/100 ML BAG IV SCH ×2 (05:38→14:22)
[2019-04-05 06:36] LABS: Basophils % (Auto) 0.4 % (0.0-1.8); Eosinophils # (Auto) 0.1 K/mm3 (0.0-0.4); Eosinophils % (Auto) 2.7 % (0.0-4.3); Hematocrit 36.3 % (30.3-42.9); Hemoglobin 11.7 gm/dl (10.1-14.3); Lymphocytes # (Auto) 1.5 K/mm3 (1.2-5.4); Lymphocytes % (Auto) 30.1 % (13.4-35.0); Mean Corpuscular HGB Conc 32 % (30-34); Mean Corpuscular Volume 80 fl (79-97); Monocytes # (Auto) 0.6 K/mm3 (0.0-0.8); Monocytes % (Auto) 10.9 % (0.0-7.3); Platelet Count 291 K/mm3 (140-440); Red Blood Count 4.52 M/mm3 (3.65-5.03); Red Cell Distribution Width 16.2 % (13.2-15.2)
[2019-04-05] MEDS: NACL 0.9% 1000 ML 1,000 ML IV SCH (09:39)
[2019-04-05] MEDS: PEPCID IV SCH (09:40)
[2019-04-05] MEDS: LEVAQUIN 500MG/100ML 500 MG/100 ML BAG IV SCH (09:41)
[2019-04-05] MEDS: LOVENOX SUB-Q SCH (09:41)
[2019-04-05] MEDS: HABITROL TD SCH (09:44)
[2019-04-05] MEDS: SODIUM CHLORIDE FLUSH SYRINGE 10 ML IV SCH (09:45)
--- NOTE | 2019-04-05 12:13 | Progress Note ---
Assessment and Plan Assessment and plan: (1) Abdominal pain Current Visit: Yes Status: Acute Plan to address problem: Abdominal pain secondary to acute diverticulitis and 10 units Flagyl and Levaquin for antibiotics. Continue supportive care for nausea rectal pain. (2) Acute diverticulitis Current Visit: Yes Status: Acute Plan to address problem: Continue present antibiotics as mentioned above. Bowel rest supportive care. Evaluated diet for patient continue supportive care with pain control antibiotic coverage Levaquin and Flagyl. Nausea supportive care. (3) Diverticulitis of colon with perforation Current Visit: Yes Status: Acute (4) Hypertension Current Visit: Yes Status: Chronic Qualifiers: Hypertension type: essential hypertension Qualified Code(s): I10 - Essential (primary) hypertension Plan to address problem: She has had optimal control of blood pressure. Continue Catapres patch. Patient is currently nothing by mouth. (5) Tobacco abuse counseling Current Visit: No Status: Acute Plan to address problem: Continued tobacco abuse counseling. Hospitalist Physical - Constitutional Vitals: Temp Pulse Resp BP Pulse Ox 97.8 F 77 22 149/80 98 04/05/19 05:14 04/05/19 05:14 04/05/19 05:14 04/05/19 05:14 04/05/19 05:14 General appearance: Present: mild distress, well-nourished Results - Labs CBC & Chem 7: 04/05/19 05:51 04/04/19 15:20 Labs: Laboratory Last Values WBC 5.1 K/mm3 (4.5-11.0) 04/05/19 05:51 RBC 4.52 M/mm3 (3.65-5.03) 04/05/19 05:51 Hgb 11.7 gm/dl (10.1-14.3) 04/05/19 05:51 Hct 36.3 % (30.3-42.9) 04/05/19 05:51 MCV 80 fl (79-97) 04/05/19 05:51 MCH 26 pg (28-32) L 04/05/19 05:51 MCHC 32 % (30-34) 04/05/19 05:51 RDW 16.2 % (13.2-15.2) H 04/05/19 05:51 Plt Count 291 K/mm3 (140-440) 04/05/19 05:51 Lymph % (Auto) 30.1 % (13.4-35.0) 04/05/19 05:51 [place] % (Auto) 10.9 % (0.0-7.3) H 04/05/19 05:51 Eos % (Auto) 2.7 % (0.0-4.3) 04/05/19 05:51 Baso % (Auto) 0.4 % (0.0-1.8) 04/05/19 05:51 Lymph # 1.5 K/mm3 (1.2-5.4) 04/05/19 05:51 [place] # 0.6 K/mm3 (0.0-0.8) 04/05/19 05:51 Eos # 0.1 K/mm3 (0.0-0.4) 04/05/19 05:51 Baso # 0.0 K/mm3 (0.0-0.1) 04/05/19 05:51 Seg Neutrophils % 55.9 % (40.0-70.0) 04/05/19 05:51 Seg Neutrophils # 2.8 K/mm3 (1.8-7.7) 04/05/19 05:51 Sodium 140 mmol/L (137-145) 04/04/19 15:20 Potassium 3.8 mmol/L (3.6-5.0) 04/04/19 15:20 Chloride 102.8 mmol/L (98-107) 04/04/19 15:20 Carbon Dioxide 26 mmol/L (22-30) 04/04/19 15:20 15 mmol/L 04/04/19 15:20 BUN 8 mg/dL (7-17) 04/04/19 15:20 0.6 mg/dL (0.7-1.2) L 04/04/19 15:20 Estimated GFR > 60 ml/min 04/04/19 15:20 13 % 04/04/19 15:20 Glucose 94 mg/dL (65-100) 04/04/19 15:20 5.7 % (4-6) 04/03/19 21:10 Calcium 8.7 mg/dL (8.4-10.2) 04/04/19 15:20 0.40 mg/dL (0.1-1.2) 04/04/19 15:20 AST 18 units/L (5-40) 04/04/19 15:20 ALT 14 units/L (7-56) 04/04/19 15:20 67 units/L (35-129) 04/04/19 15:20 6.6 g/dL (6.3-8.2) 04/04/19 15:20 3.4 g/dL (3.9-5) L 04/04/19 15:20 1.1 % 04/04/19 15:20 17 units/L (13-60) 04/03/19 15:00 Yellow (Yellow) 04/03/19 14:17 Slightly-cloudy (Clear) 04/03/19 14:17 5.0 (5.0-7.0) 04/03/19 14:17 Ur Specific [place] 1.023 (1.003-1.030) 04/03/19 14:17 <15 mg/dl mg/dL (Negative) 04/03/19 14:17 Neg mg/dL (Negative) 04/03/19 14:17 Neg mg/dL (Negative) 04/03/19 14:17 Sm (Negative) 04/03/19 14:17 Neg (Negative) 04/03/19 14:17 Neg (Negative) 04/03/19 14:17 2.0 mg/dL (<2.0) 04/03/19 14:17 Ur Leukocyte Esterase Neg (Negative) 04/03/19 14:17 3.0 /HPF (0.0-6.0) 04/03/19 14:17 4.0 /HPF (0.0-6.0) 04/03/19 14:17 U Epithel Cells (Auto) 3.0 /HPF (0-13.0) 04/03/19 14:17 1+ /HPF 04/03/19 14:17 Active Medications - Current Medications Current Medications: Generic Name Dose Route Start Last Admin Trade Name Freq PRN Reason Stop Dose Admin Acetaminophen 650 mg 04/03/19 21:02 Tylenol PO Q4H PRN Pain MILD(1-3)/Fever >100.5/MADRIGAL Clonidine HCl 0.1 mg 04/03/19 22:00 04/03/19 22:10 Catapres-Tts Patch TD 0.1 mg Sa GADIEL Administration Enoxaparin Sodium 40 mg 04/04/19 10:00 04/05/19 09:41 Lovenox SUB-Q 40 mg DAILY GADIEL Administration Famotidine 20 mg 04/03/19 22:00 04/05/19 09:40 Pepcid IV 20 mg BID GADIEL Administration Hydromorphone HCl 1 mg 04/03/19 17:32 04/04/19 13:15 Dilaudid IV 1 mg Q3HR PRN Administration Pain, Moderate (4-6) Sodium Chloride 1,000 mls @ 125 mls/hr 04/03/19 18:00 04/05/19 09:39 Nacl 0.9% 1000 Ml IV 125 mls/hr DIRECT GADIEL Administration Metronidazole 500 mg in 100 mls @ 100 mls/hr 04/03/19 22:00 04/05/19 05:38 Flagyl 500 Mg/100 Ml IV 100 mls/hr Q8HR GADIEL Administration Protocol Levofloxacin/Dextrose 500 mg in 100 mls @ 100 mls/hr 04/04/19 10:00 04/05/19 09:41 Levaquin 500mg/100ml IV 100 mls/hr Q24HR GADIEL Administration Protocol Metoclopramide HCl 10 mg 04/03/19 21:02 04/04/19 04:41 Reglan IV 10 mg Q6H PRN Administration Nausea And Vomiting Nicotine 14 mg 04/03/19 22:00 04/05/19 09:44 Habitrol TD 14 mg DAILY GADIEL Administration Ondansetron HCl 4 mg 04/03/19 17:27 04/03/19 17:48 Zofran IV 4 mg Q8H PRN Administration Nausea And Vomiting Ondansetron HCl 4 mg 04/03/19 21:02 Zofran IV Q8H PRN Nausea And Vomiting Sodium Chloride 10 ml 04/03/19 22:00 04/05/19 09:45 Sodium Chloride Flush Syringe 10 Ml IV 10 ml BID GADIEL Administration Sodium Chloride 10 ml 04/03/19 21:02 Sodium Chloride Flush Syringe 10 Ml IV PRN PRN LINE FLUSH
--- NOTE | 2019-04-05 13:44 | Progress Note ---
Assessment and Plan 58 yo F with acute diverticulitis of descending colon with localized perforation, without abscess Plan: 1. adv to soft diet. Pt instructed to stay on low fiber diet for next 2 weeks and then transition to high fiber diet. 2. health information tech consult 3. prn pain and nausea control 4. IV abx - on levaquin and flagyl. May dc home on cipro/flagyl x 14 days total (start from day of admission) 5. DVT ppx OK to dc home today if tolerates diet. Outpatient follow up with GI and may follow up in surgery clinic if she wishes to discuss elective colon resection. D/W Dr. Owens. Thank you, please call with questions. Subjective Date of service: 04/05/19 Narrative: Pt seen and examined. Tearful because she is hungry. Abdominal pain nearly resolved. No f/c. Tolerated clear liquids without pain, n/v. Objective Vital Signs - 12hr 04/05/19 04/05/19 05:14 11:40 Temperature 97.8 F 98.7 F Pulse Rate 77 81 Respiratory 22 20 Rate Blood Pressure 149/80 166/95 O2 Sat by Pulse 98 97 Oximetry - General physical appearance Narrative Exam: Gen: AAOx3. NAD CV: S1, S2+ resp: even and unlabored Abd: soft, ND, NT. no r/r/g Ext: no c/c/e - Labs 04/05/19 05:51 04/04/19 15:20 Diabetes panel 04/04/19 Range/Units 15:20 Sodium 140 (137-145) mmol/L Potassium 3.8 (3.6-5.0) mmol/L Chloride 102.8 (98-107) mmol/L Carbon Dioxide 26 (22-30) mmol/L BUN 8 (7-17) mg/dL Creatinine 0.6 L (0.7-1.2) mg/dL Glucose 94 (65-100) mg/dL Calcium 8.7 (8.4-10.2) mg/dL AST 18 (5-40) units/L ALT 14 (7-56) units/L Alkaline Phosphatase 67 (35-129) units/L Total Protein 6.6 (6.3-8.2) g/dL Albumin 3.4 L (3.9-5) g/dL Calcium panel 08/18/19 Range/Units 15:20 Calcium 8.7 (8.4-10.2) mg/dL Albumin 3.4 L (3.9-5) g/dL Pituitary panel 04/04/19 Range/Units 15:20 Sodium 140 (137-145) mmol/L Potassium 3.8 (3.6-5.0) mmol/L Chloride 102.8 (98-107) mmol/L Carbon Dioxide 26 (22-30) mmol/L BUN 8 (7-17) mg/dL Creatinine 0.6 L (0.7-1.2) mg/dL Glucose 94 (65-100) mg/dL Calcium 8.7 (8.4-10.2) mg/dL Adrenal panel 04/04/19 Range/Units 15:20 Sodium 140 (137-145) mmol/L Potassium 3.8 (3.6-5.0) mmol/L Chloride 102.8 (98-107) mmol/L Carbon Dioxide 26 (22-30) mmol/L BUN 8 (7-17) mg/dL Creatinine 0.6 L (0.7-1.2) mg/dL Glucose 94 (65-100) mg/dL Calcium 8.7 (8.4-10.2) mg/dL Total Bilirubin 0.40 (0.1-1.2) mg/dL AST 18 (5-40) units/L ALT 14 (7-56) units/L Alkaline Phosphatase 67 (35-129) units/L Total Protein 6.6 (6.3-8.2) g/dL Albumin 3.4 L (3.9-5) g/dL
--- NOTE | 2019-04-05 16:25 | Discharge Summary ---
Providers - Providers Date of Admission: 04/03/19 16:54 Date of discharge: 04/05/19 Attending physician: KELLIE MALDONADO 04/03/19 16:53 Consult to Physician [CONS] Stat Comment: Consulting Provider: SHER ARGUETA Physician Instructions: Reason For Exam: diverticulitis with a small perforation. 04/05/19 12:59 Consult to Dietitian/Nutrition [CONS] Routine Physician Instructions: pending dc today Reason For Exam: low vs high fiber diet education Reason for Consult: Diet education Primary care physician: ITZEL HERRMANN Hospitalization Condition: Stable Disposition: DC-01 TO HOME OR SELFCARE Time spent for discharge: 32 min Core Measure Documentation - Palliative Care Palliative Care/ Comfort Measures: Not Applicable - Core Measures Any of the following diagnoses?: none Exam - Constitutional Vitals: Temp Pulse Resp BP Pulse Ox 98.7 F 81 20 166/95 100 04/05/19 11:40 04/05/19 11:40 04/05/19 11:40 04/05/19 11:40 04/05/19 13:59 General appearance: Present: no acute distress, well-nourished - EENT Eyes: Present: PERRL, EOM intact - Neck Neck: Present: supple, normal ROM - Respiratory Respiratory effort: normal Respiratory: bilateral: diminished, negative: rales, rhonchi, wheezing - Cardiovascular Rhythm: regular Heart Sounds: Present: S1 & S2 - Extremities Extremities: no ischemia, No edema - Abdominal General gastrointestinal: Present: soft, non-tender, non-distended, normal bowel sounds - Integumentary Integumentary: Present: clear, warm - Musculoskeletal Musculoskeletal: strength equal bilaterally, generalized weakness - Psychiatric Psychiatric: appropriate mood/affect, cooperative - Neurologic Neurologic: CNII-XII intact, moves all extremities Plan Activity: no restrictions Diet: other (soft low fiber diet for 2 weeks) Additional Instructions: Advised soft low fiber diet for 2 weeks. Advised 7 days work excuse from 04/06/19 - 04/12/19 Follow up with: ITZEL HERRMANN MD [Primary Care Provider] - 3-5 Days SHER ARGUETA DO [Staff Physician] - 7 Days Prescriptions: metroNIDAZOLE [Flagyl] 500 mg PO Q8HR #36 tablet Nicotine [Habitrol] 14 mg TD DAILY #30 patch levoFLOXacin [Levaquin] 750 mg PO QDAY #12 tablet Famotidine [Pepcid] 20 mg PO BID #20 tablet oxyCODONE /ACETAMINOPHEN [Percocet 5/325] 1 tab PO BID PRN #10 tablet PRN Reason: Pain , Severe (7-10)
[2019-04-05 16:47] VITALS: BP 139/85
== END 2019-04-05 17:21 | disposition home or self-care (01) | DRG 392 ==
LOC: ED 12:55 → 3A 16:54
PROVIDERS: ADMIT Internal Medicine; ATTEND Internal Medicine
DX: K57.20 Diverticulitis of large intestine with perforation and abscess without bleeding (principal); I10 Essential (primary) hypertension; J45.909 Unspecified asthma, uncomplicated; G43.909 Migraine, unspecified, not intractable, without status migrainosus; F17.210 Nicotine dependence, cigarettes, uncomplicated; Z71.6 Tobacco abuse counseling; I25.2 Old myocardial infarction; Z90.49 Acquired absence of other specified parts of digestive tract; Z90.710 Acquired absence of both cervix and uterus; Z82.49 Family history of ischemic heart disease and other diseases of the circulatory system; Z79.899 Other long term (current) drug therapy; Z88.0 Allergy status to penicillin; Z88.5 Allergy status to narcotic agent; Z91.010 Allergy to peanuts
CPT/HCPCS: 36415; 74177; 80053; 81001; 83036; 83690; 85025; 87040; 87086; 94760; 99406; G0378; J1170; J1650; J1956; J2405; J2765; J3010; J7030; Q9967

== ENCOUNTER 2019-04-06 20:58 | Emergency (ER) | payer BC ==
[2019-04-06] MEDS ORDERED: NACL 0.9% 1000 ML 1,000 ML IV ONE ×2 (21:21→23:00)
--- NOTE | 2019-04-06 21:21 | Emergency Department Report ---
ED Abdominal Pain HPI - General Chief Complaint: Abdominal Pain Stated Complaint: BLOOD IN URINE/LEFT SIDE PAIN Time Seen by Provider: 04/06/19 21:20 Source: patient, EMS Mode of arrival: Stretcher Limitations: No Limitations - History of Present Illness Initial Comments: patient c/o left flank pain, recent uti dx, has started medications, and since noticed discoloration of her urine. no n/v, no fever, chills or night sweats. - Related Data Home Medications Medication Instructions Recorded Confirmed Last Taken Lisinopril/Hydrochlorothiazide 1 tab PO QDAY 04/03/19 04/03/19 Unknown [Zestoretic 20-12.5 mg] Metoprolol [Lopressor TAB] 50 mg PO QDAY 04/03/19 04/03/19 Unknown Previous Rx's Medication Instructions Recorded Last Taken Type Famotidine [Pepcid] 20 mg PO BID #20 tablet 04/05/19 Unknown Rx Nicotine [Habitrol] 14 mg TD DAILY #30 patch 04/05/19 Unknown Rx levoFLOXacin [Levaquin] 750 mg PO QDAY #12 tablet 04/05/19 Unknown Rx metroNIDAZOLE [Flagyl] 500 mg PO Q8HR #36 tablet 04/05/19 Unknown Rx oxyCODONE /ACETAMINOPHEN [Percocet 1 tab PO BID PRN #10 tablet 04/05/19 Unknown Rx 5/325] Allergies Allergy/AdvReac Type Severity Reaction Status Date / Time codeine Allergy Vomiting Verified 04/03/19 13:25 Penicillins Allergy Hives Verified 04/03/19 13:26 any type of seeds Allergy Unknown Uncoded 04/03/19 13:25 peanuts Allergy Unknown Uncoded 04/03/19 13:25 ED Review of Systems ROS: Stated complaint: BLOOD IN URINE/LEFT SIDE PAIN Other details as noted in HPI Comment: All other systems reviewed and negative Constitutional: denies: chills Eyes: denies: eye pain ENT: denies: ear pain, throat pain Cardiovascular: denies: chest pain, palpitations Endocrine: denies: flushing Gastrointestinal: denies: nausea Genitourinary: urgency, dysuria ED Past Medical Hx - Past Medical History Previous Medical History?: Yes Hx Hypertension: Yes Hx Heart Attack/AMI: Yes (mild) Hx Diabetes: No Hx Headaches / Migraines: No Additional medical history: high chol. - Surgical History Past Surgical History?: Yes Hx Cholecystectomy: Yes Additional Surgical History: hysterectomy - Social History Smoking Status: Current Every Day Smoker Substance Use Type: None - Medications Home Medications: Home Medications Medication Instructions Recorded Confirmed Last Taken Type Lisinopril/Hydrochlorothiazide 1 tab PO QDAY 04/03/19 04/03/19 Unknown History [Zestoretic 20-12.5 mg] Metoprolol [Lopressor TAB] 50 mg PO QDAY 04/03/19 04/03/19 Unknown History Famotidine [Pepcid] 20 mg PO BID #20 tablet 04/05/19 Unknown Rx Nicotine [Habitrol] 14 mg TD DAILY #30 patch 04/05/19 Unknown Rx levoFLOXacin [Levaquin] 750 mg PO QDAY #12 tablet 04/05/19 Unknown Rx metroNIDAZOLE [Flagyl] 500 mg PO Q8HR #36 tablet 04/05/19 Unknown Rx oxyCODONE /ACETAMINOPHEN [Percocet 1 tab PO BID PRN #10 tablet 04/05/19 Unknown Rx 5/325] ED Physical Exam - General Limitations: No Limitations General appearance: alert, in no apparent distress - Head Head exam: Present: atraumatic, normocephalic - Eye Eye exam: Present: normal appearance, PERRL, EOMI Pupils: Present: normal accommodation - ENT ENT exam: Present: normal exam - Neck Neck exam: Present: normal inspection - Respiratory Respiratory exam: Present: normal lung sounds bilaterally - Cardiovascular Cardiovascular Exam: Present: regular rate, normal rhythm - GI/Abdominal GI/Abdominal exam: Present: soft, normal bowel sounds - Extremities Exam Extremities exam: Present: normal inspection - Back Exam Back exam: Present: normal inspection - Neurological Exam Neurological exam: Present: alert, oriented X3, CN II-XII intact - Skin Skin exam: Present: warm ED Course Vital Signs 04/06/19 04/06/19 21:05 21:23 Temperature 98.9 F Pulse Rate 94 H Respiratory 16 16 Rate Blood Pressure 141/92 O2 Sat by Pulse 95 95 Oximetry ED Medical Decision Making - Lab Data Result diagrams: 04/06/19 21:23 04/06/19 21:23 - Medical Decision Making patient refused more ivf or further testing, after ivf 1 LITER she states that she feels better, urine is clear and she wants to go home. Critical care attestation.: If time is entered above; I have spent that time in minutes in the direct care o f this critically ill patient, excluding procedure time. ED Disposition Clinical Impression: UTI (urinary tract infection) Qualifiers: Urinary tract infection type: acute cystitis Hematuria presence: without hematuria Qualified Code(s): N30.00 - Acute cystitis without hematuria Disposition: TO HOME OR SELFCARE Is pt being admited?: No Does the pt Need Aspirin: No Condition: Stable Instructions: Abdominal Pain (ED)
[2019-04-06 21:36] LABS: Basophils # (Auto) 0.1 K/mm3 (0.0-0.1); Basophils % (Auto) 1.1 % (0.0-1.8); Eosinophils # (Auto) 0.2 K/mm3 (0.0-0.4); Eosinophils % (Auto) 2.3 % (0.0-4.3); Hematocrit 37.7 % (30.3-42.9); Hemoglobin 12.3 gm/dl (10.1-14.3); Lymphocytes # (Auto) 1.8 K/mm3 (1.2-5.4); Lymphocytes % (Auto) 27.4 % (13.4-35.0); Mean Corpuscular HGB Conc 33 % (30-34); Mean Corpuscular Volume 80 fl (79-97); Monocytes # (Auto) 0.8 K/mm3 (0.0-0.8); Monocytes % (Auto) 11.8 % (0.0-7.3); Platelet Count 366 K/mm3 (140-440); Red Blood Count 4.72 M/mm3 (3.65-5.03); Red Cell Distribution Width 16.6 % (13.2-15.2)
[2019-04-06 22:09] LABS: Bilirubin,Urine SM (Negative); Blood,Urine NEG (Negative); Calcium Oxalate Crystals,Urine 1+; Color,Urine Amber (Yellow); Hyaline Casts,Urine 40 /LPF; Mucus,Urine 3+ /HPF
[2019-04-06 22:24] LABS: Ictotest,Urine Negative (Negative)
[2019-04-06 22:39] LABS: Alanine Aminotransferase 14 units/L (7-56); Albumin 3.7 g/dL (3.9-5); BUN/Creatinine Ratio 13; Blood Urea Nitrogen 12 mg/dL (7-17); Calcium 9.8 mg/dL (8.4-10.2); Hemolysis Index 6
[2019-04-06 23:32] VITALS: BP 136/84
== END 2019-04-06 23:37 | disposition home or self-care (01) ==
LOC: ED 20:58
DX: N39.0 Urinary tract infection, site not specified (principal); I10 Essential (primary) hypertension; E78.00 Pure hypercholesterolemia, unspecified; F17.200 Nicotine dependence, unspecified, uncomplicated; Z88.5 Allergy status to narcotic agent; Z90.49 Acquired absence of other specified parts of digestive tract; Z90.710 Acquired absence of both cervix and uterus; Z88.0 Allergy status to penicillin; Z91.010 Allergy to peanuts
CPT/HCPCS: 36415; 80053; 81001; 82550; 85025; 87086; 99284; J7030

== ENCOUNTER 2020-05-21 21:48 | Emergency (ER) | payer BC ==
--- NOTE | 2020-05-22 00:11 | XRay Report ---
RIGHT HAND 3 VIEWS INDICATION / CLINICAL INFORMATION: right hand pain. COMPARISON: None available. FINDINGS: No fracture or other skeletal abnormality. No appreciable soft tissue lesions. Signer Name: Samuel Painter MD Signed: 05/22/2020 12:07 AM Workstation Name: [id number]
[2020-05-22] MEDS ORDERED: ACETAMINOPHEN 500 MG TAB PO ONE (01:28)
[2020-05-22] MEDS ORDERED: predniSONE 20 MG TAB PO ONE (01:28)
[2020-05-22] MEDS ORDERED: IBUPROFEN 600 MG TAB PO ONE (01:28)
[2020-05-22] MEDS ORDERED: FAMOTIDINE 20 MG TAB PO ONE (01:28)
--- NOTE | 2020-05-22 01:37 | Emergency Department Report ---
ED Extremity Problem HPI - General Chief complaint: Extremity Injury, Upper Stated complaint: RT HAND PAIN Source: patient Mode of arrival: Ambulatory Limitations: No Limitations - History of Present Illness Initial comments: Patient is a 59-year-old -[place] female with a history of hypertension who presents to the ED with complaint of acute onset persistent severe right middle finger pain with mild swelling at the PIP joint for the last 6 hours. Patient states that she has been cooking and cleaning her house for almost 12 hours and that the pain started after she completed her task. Patient states that she is unable perform any active range of motion in the right middle finger because of severe pain. Patient states that the pain in the right middle finger radiates to the right wrist and to her right forearm. Patient denies fall, traumatic injury, dizziness, syncope, fever, chills, cough, nausea and vomiting or numbness and tingling or weakness of right middle finger. MD Complaint: extremity pain (right middle finger), extremity swelling (right middle finger), joint swelling (right middle finger), joint paint (right middle finger) -: Sudden, hour(s) (6) Location: right (middle finger) History of Same: No -: Yes arthralgia (right middle finger ), No fever, No associated dyspnea, No associated chest pain Radiation: proximal Severity scale (0 -10): 7 Quality: aching, sharp Improves with: nothing Worsens with: weight bearing, exertion, palpation Associated Symptoms: denies other symptoms, arthralgias (right middle finger). denies: chest pain, shortness of breath, fever, myalgias, rash - Related Data Home Medications Medication Instructions Recorded Confirmed Last Taken Lisinopril/Hydrochlorothiazide 1 tab PO QDAY 04/03/19 04/03/19 Unknown [Zestoretic 20-12.5 mg] Metoprolol [Lopressor TAB] 50 mg PO QDAY 04/03/19 04/03/19 Unknown Previous Rx's Medication Instructions Recorded Last Taken Type Famotidine [Pepcid] 20 mg PO BID #20 tablet 04/05/19 Unknown Rx Nicotine [Habitrol] 14 mg TD DAILY #30 patch 04/05/19 Unknown Rx levoFLOXacin [Levaquin] 750 mg PO QDAY #12 tablet 04/05/19 Unknown Rx metroNIDAZOLE [Flagyl] 500 mg PO Q8HR #36 tablet 04/05/19 Unknown Rx oxyCODONE /ACETAMINOPHEN [Percocet 1 tab PO BID PRN #10 tablet 04/05/19 Unknown Rx 5/325] Naproxen 500 mg PO Q12H PRN #30 tablet 05/22/20 Unknown Rx predniSONE [Deltasone] 40 mg PO QDAY #12 tab 05/22/20 Unknown Rx Allergies Allergy/AdvReac Type Severity Reaction Status Date / Time codeine Allergy Vomiting Verified 04/03/19 13:25 Penicillins Allergy Hives Verified 04/03/19 13:26 any type of seeds Allergy Unknown Uncoded 04/03/19 13:25 peanuts Allergy Unknown Uncoded 04/03/19 13:25 ED Review of Systems ROS: Stated complaint: RT HAND PAIN Other details as noted in HPI Constitutional: denies: chills, fever Eyes: denies: eye pain, eye discharge, vision change ENT: denies: ear pain, throat pain Respiratory: denies: cough, shortness of breath, wheezing Cardiovascular: denies: chest pain, palpitations Endocrine: no symptoms reported Gastrointestinal: denies: abdominal pain, nausea, diarrhea Genitourinary: denies: urgency, dysuria, discharge Musculoskeletal: joint swelling (Right middle finger mild swelling and pain), arthralgia (Right middle finger pain). denies: back pain Skin: denies: rash, lesions Neurological: denies: headache, weakness, paresthesias Psychiatric: denies: anxiety, depression Hematological/Lymphatic: denies: easy bleeding, easy bruising ED Past Medical Hx - Past Medical History Previous Medical History?: Yes Hx Hypertension: Yes Hx Heart Attack/AMI: Yes (mild) Hx Diabetes: No Hx Headaches / Migraines: No Additional medical history: high chol. - Surgical History Past Surgical History?: Yes Hx Cholecystectomy: Yes Additional Surgical History: hysterectomy - Social History Smoking Status: Current Every Day Smoker Substance Use Type: None - Medications Home Medications: Home Medications Medication Instructions Recorded Confirmed Last Taken Type Lisinopril/Hydrochlorothiazide 1 tab PO QDAY 04/03/19 04/03/19 Unknown History [Zestoretic 20-12.5 mg] Metoprolol [Lopressor TAB] 50 mg PO QDAY 04/03/19 04/03/19 Unknown History Famotidine [Pepcid] 20 mg PO BID #20 tablet 04/05/19 Unknown Rx Nicotine [Habitrol] 14 mg TD DAILY #30 patch 04/05/19 Unknown Rx levoFLOXacin [Levaquin] 750 mg PO QDAY #12 tablet 04/05/19 Unknown Rx metroNIDAZOLE [Flagyl] 500 mg PO Q8HR #36 tablet 04/05/19 Unknown Rx oxyCODONE /ACETAMINOPHEN [Percocet 1 tab PO BID PRN #10 tablet 04/05/19 Unknown Rx 5/325] Naproxen 500 mg PO Q12H PRN #30 tablet 05/22/20 Unknown Rx predniSONE [Deltasone] 40 mg PO QDAY #12 tab 05/22/20 Unknown Rx ED Physical Exam - General Limitations: No Limitations General appearance: alert, in no apparent distress - Head Head exam: Present: atraumatic, normocephalic, normal inspection - Eye Eye exam: Present: normal appearance, PERRL, EOMI Pupils: Present: normal accommodation - ENT ENT exam: Present: normal exam, normal orophraynx, mucous membranes moist, TM's normal bilaterally, normal external ear exam - Neck Neck exam: Present: normal inspection, full ROM - Respiratory Respiratory exam: Present: normal lung sounds bilaterally. Absent: respiratory distress, wheezes, rales, stridor, chest wall tenderness, accessory muscle use, decreased breath sounds, prolonged expiratory - Cardiovascular Cardiovascular Exam: Present: regular rate, normal rhythm, normal heart sounds. Absent: systolic murmur, diastolic murmur, rubs, gallop - GI/Abdominal GI/Abdominal exam: Present: soft, normal bowel sounds. Absent: tenderness, guar ding, rebound, hyperactive bowel sounds, hypoactive bowel sounds - Extremities Exam Extremities exam: Present: normal inspection, full ROM, tenderness (Palpable right middle finger tenderness with mild swelling and limited range of motion due to pain), normal capillary refill, joint swelling (Right middle finger mild swelling and tenderness) - Back Exam Back exam: Present: normal inspection, full ROM. Absent: tenderness, CVA tenderness (R), CVA tenderness (L), muscle spasm, paraspinal tenderness, vertebral tenderness - Neurological Exam Neurological exam: Present: alert, oriented X3, CN II-XII intact, normal gait, reflexes normal - Psychiatric Psychiatric exam: Present: normal affect, normal mood - Skin Skin exam: Present: warm, dry, intact, normal color. Absent: rash ED Course Vital Signs 05/21/20 23:15 Temperature 98.9 F Pulse Rate 89 Respiratory 17 Rate Blood Pressure 143/87 O2 Sat by Pulse 97 Oximetry ED Medical Decision Making - Radiology Data Radiology results: report reviewed, image reviewed Findings [facility] [address] [place] [address] XRay Report Signed Patient: HOWARD SOTO MR#: [id number] : 1960 Acct:[id number] Age/Sex: 59 / F ADM Date: 05/21/20 Loc: ED Attending Dr: Ordering Physician: CAROLE BECKWITH MD Date of Service: 05/21/20 Procedure(s): XR hand 3+V RT Accession Number(s): [id number] cc: CAROLE BECKWITH MD Fluoro Time In Minutes: RIGHT HAND 3 VIEWS INDICATION / CLINICAL INFORMATION: right hand pain. COMPARISON: None available. FINDINGS: No fracture or other skeletal abnormality. No appreciable soft tissue lesions. Signer Name: Samuel Painter MD Signed: 05/22/2020 12:07 AM Workstation Name: [id number] Transcribed By: TM Dictated By: Samuel Painter MD Electronically Authenticated By: Samuel Painter MD Signed Date/Time: 05/22/206 DD/ TD/TT: - Medical Decision Making This is a 59-year-old -Palest[place] female with a history of hypertension who presents to the ED with complaint of acute onset persistent severe right middle finger pain with mild swelling at the PIP joint for the last 6 hours. Patient states that she has been cooking and cleaning her house for almost 12 hours and that the pain started after she completed her task. Patient states that she is unable perform any active range of motion in the right middle finger because of severe pain. Patient states that the pain in the right middle finger radiates to the right wrist and to her right forearm. In the ED, patient is alert and oriented x3 and is not in distress but appears in significant pain. Patient was treated for pain in the ED. Right middle finger was splinted with finger splint. Right hand x-ray shows no acute fractures or subluxations. On reevaluation, patient's pain is well controlled medications. Patient was discharged home on pain medications and advised to follow-up with her primary care physician in 5 to 7 days for reevaluation or return to the ED immediately if symptoms get worse. - Differential Diagnosis Tendinitis; tenosynovitis; muscle strain; muscle spasm; Critical care attestation.: If time is entered above; I have spent that time in minutes in the direct care of this critically ill patient, excluding procedure time. ED Disposition Clinical Impression: Tendinitis of finger of right hand, Strain of flexor muscle, fascia and tendon of right middle finger at wrist and hand level, sequela Disposition: TO HOME OR SELFCARE Is pt being admited?: No Does the pt Need Aspirin: No Condition: Stable Instructions: Tendinitis (ED), Muscle Strain (ED), Musculoskeletal Pain (ED) Additional Instructions: Take medication with food, drink plenty of fluids and follow-up with your primary care physician in 7 to 10 days for reevaluation. Return to the ED immediately if symptoms get worse. Prescriptions: predniSONE [Deltasone] 40 mg PO QDAY #12 tab Naproxen 500 mg PO Q12H PRN #30 tablet PRN Reason: Pain , Severe (7-10) Referrals: [facility] [Provider Group] - 3-5 Days Forms: Work/School Release Form(ED) Time of Disposition: 02:15 Print Language: IRISH
[2020-05-22 03:57] VITALS: BP 140/88
== END 2020-05-22 03:10 | disposition home or self-care (01) ==
LOC: ED 21:48
DX: S56.11 Strain of flexor muscle, fascia and tendon of other and unspecified finger at forearm level (principal); M77.9 Enthesopathy, unspecified; I25.2 Old myocardial infarction; I10 Essential (primary) hypertension; F17.200 Nicotine dependence, unspecified, uncomplicated; Z90.49 Acquired absence of other specified parts of digestive tract; Z90.710 Acquired absence of both cervix and uterus; Z79.2 Long term (current) use of antibiotics; Z79.899 Other long term (current) drug therapy; Z88.0 Allergy status to penicillin; Z91.010 Allergy to peanuts; Z88.8 Allergy status to other drugs, medicaments and biological substances; X58.XXXS Exposure to other specified factors, sequela
CPT/HCPCS: 29130; 73130; 99283; J7512

== ENCOUNTER 2020-12-21 22:26 | Observation (INO) | payer BC ==
--- NOTE | 2020-12-21 22:42 | Emergency Department Report ---
ED Syncope HPI - General Chief Complaint: Headache Stated Complaint: FALL Time Seen by Provider: 12/21/20 22:27 Source: patient, EMS, RN notes reviewed Exam Limitations: no limitations - History of Present Illness Initial Comments: Patient is a 60-year-old male who presents emergency room with complaints of headache, weakness, lightheadedness, syncopal episode. Patient states she had a syncopal episode while walking in the kitchen. Patient states he went to the kitchen and the next thing she knows she woke up with EMS. Patient is not sure how long she was out. Patient does not recall if there was any seizure activity. Patient states that she was told that she hit her head. Patient states in the back of her head. Patient is complaining of a headache. Patient states headache is severe and is a 10/10. Patient states she is having generalized fatigue and weakness. Patient states she has a history of high blood pressure. Patient states she is compliant with her medications. Patient denies recent travel. Patient denies recent international travel. Patient denies exposure to the novel coronavirus. Patient denies sick contacts. Patient denies fever and chills. Patient denies cough. Patient denies diarrhea. Patient denies coming in contact with anybody with symptoms of the novel coronavirus. Timing/Prior Episodes: single episode today Precipitating Factors: Positive: blurred vision, lightheadedness Loss of Consciousness: brief (seconds) Current Symptoms: dizziness, headache, lightheadedness, weakness - Related Data Allergies/Adverse Reactions: Allergies codeine Allergy (Verified 04/03/19 13:25) Vomiting Penicillins Allergy (Verified 04/03/19 13:26) Hives any type of seeds Allergy (Uncoded 04/03/19 13:25) Unknown peanuts Allergy (Uncoded 04/03/19 13:25) Unknown Home Medications: Ambulatory Orders Lisinopril/Hydrochlorothiazide [Zestoretic 20-12.5 mg] 1 tab PO QDAY 04/03/19 Metoprolol [Lopressor TAB] 50 mg PO QDAY 04/03/19 Famotidine [Pepcid] 20 mg PO BID #20 tablet 04/05/19 Nicotine [Habitrol] 14 mg TD DAILY #30 patch 04/05/19 levoFLOXacin [Levaquin] 750 mg PO QDAY #12 tablet 04/05/19 metroNIDAZOLE [Flagyl] 500 mg PO Q8HR #36 tablet 04/05/19 oxyCODONE /ACETAMINOPHEN [Percocet 5/325] 1 tab PO BID PRN #10 tablet 04/05/19 Naproxen 500 mg PO Q12H PRN #30 tablet 05/22/20 predniSONE [Deltasone] 40 mg PO QDAY #12 tab 05/22/20 ED Review of Systems ROS: Stated complaint: FALL Other details as noted in HPI ED Past Medical Hx - Past Medical History Previous Medical History?: Yes Hx Hypertension: Yes Hx Heart Attack/AMI: Yes (mild) Hx Diabetes: No Hx Headaches / Migraines: No Additional medical history: high chol. - Surgical History Past Surgical History?: Yes Hx Cholecystectomy: Yes Additional Surgical History: hysterectomy - Family History Family history: no significant - Social History Smoking Status: Current Every Day Smoker Substance Use Type: None - Medications Home Medications: Home Medications Medication Instructions Recorded Confirmed Last Taken Type Lisinopril/Hydrochlorothiazide 1 tab PO QDAY 04/03/19 04/03/19 Unknown History [Zestoretic 20-12.5 mg] Metoprolol [Lopressor TAB] 50 mg PO QDAY 04/03/19 04/03/19 Unknown History Famotidine [Pepcid] 20 mg PO BID #20 tablet 04/05/19 Unknown Rx Nicotine [Habitrol] 14 mg TD DAILY #30 patch 04/05/19 Unknown Rx levoFLOXacin [Levaquin] 750 mg PO QDAY #12 tablet 04/05/19 Unknown Rx metroNIDAZOLE [Flagyl] 500 mg PO Q8HR #36 tablet 04/05/19 Unknown Rx oxyCODONE /ACETAMINOPHEN [Percocet 1 tab PO BID PRN #10 tablet 04/05/19 Unknown Rx 5/325] Naproxen 500 mg PO Q12H PRN #30 tablet 05/22/20 Unknown Rx predniSONE [Deltasone] 40 mg PO QDAY #12 tab 05/22/20 Unknown Rx ED Physical Exam - General Limitations: No Limitations General appearance: alert, in no apparent distress - Head Head exam: Present: atraumatic, normocephalic - Eye Eye exam: Present: normal appearance, PERRL Pupils: Present: normal accommodation - ENT ENT exam: Present: mucous membranes moist - Neck Neck exam: Present: normal inspection - Respiratory Respiratory exam: Present: normal lung sounds bilaterally. Absent: respiratory distress, wheezes, rales - Cardiovascular Cardiovascular Exam: Present: regular rate, normal rhythm. Absent: systolic murmur, diastolic murmur, rubs, gallop - GI/Abdominal GI/Abdominal exam: Present: soft, normal bowel sounds. Absent: distended, tenderness, guarding - Rectal Rectal exam: Present: deferred - Extremities Exam Extremities exam: Present: normal inspection - Back Exam Back exam: Present: normal inspection - Neurological Exam Neurological exam: Present: alert, oriented X3 - Psychiatric Psychiatric exam: Present: normal affect, normal mood - Skin Skin exam: Present: warm, dry, intact, normal color. Absent: rash ED Course Vital Signs 12/21/20 12/21/20 12/21/20 22:28 23:00 23:02 Pulse Rate 93 H 100 H Respiratory 18 24 16 Rate Blood Pressure 137/87 152/104 O2 Sat by Pulse 95 94 Oximetry 12/21/20 12/21/20 12/21/20 23:16 23:30 23:46 Pulse Rate 84 82 88 Respiratory 24 25 H 25 H Rate Blood Pressure 154/84 156/80 150/80 O2 Sat by Pulse 94 93 93 Oximetry - Reevaluation(s) Reevaluation #1: Based on the patient's clinical complaints and symptoms, a code stroke was initiated. Patient was found to have a blood pressure of 190/130 by EMS and is complaining of a severe headache as well as a syncopal episode. Patient will be taken to CT scan. Code stroke order placed. 12/21/20 22:39 Reevaluation #2: I discussed all results with patient. I discussed plan of care with patient. Patient agrees with plan of care and admission. Patient to be admitted to the hospitalist service. 12/22/20 00:38 - Consultations Consultation #1: I discussed the case with neurology. Neurology states they will see the patient and post the recommendations. 12/21/20 22:50 Consultation #2: I discussed all results with patient. I discussed plan of care with patient. Patient agrees with plan of care and admission. Patient to be admitted to the hospitalist service. 12/22/20 00:37 ED Medical Decision Making - Lab Data Result diagrams: 12/21/20 22:53 12/21/20 22:53 - EKG Data -: EKG Interpreted by Me EKG shows normal: sinus rhythm, axis, intervals, QRS complexes, ST-T waves Rate: normal - Radiology Data Radiology results: report reviewed, image reviewed interpreted by me: Chest x-ray: No pneumonia, no pneumothorax, no foreign body, no osseous findings, no acute findings CT HEAD WITHOUT CONTRAST INDICATION / CLINICAL INFORMATION: Clinical history obtained from Dr. Malone included Code stroke. Hypertensive emergency. Syncopal episode. Stroke-Like symptoms. TECHNIQUE: All CT scans at this location are performed using CT dose reduction for ALARA by means of automated exposure control. COMPARISON: Head CT 02/21/2019 FINDINGS: HEMORRHAGE: No evidence of intracranial hemorrhage or extra-axial fluid collection. EXTRA-AXIAL SPACES: Cortical sulci, sylvian fissures and basilar cisterns have an unremarkable appearance. VENTRICULAR SYSTEM: The third and lateral ventricles are of normal size and configuration. CEREBRAL PARENCHYMA: Mild periventricular white matter lucency is noted compatible with microvascular ischemic change. A more focal area of decreased brain parenchymal attenuation is observed in the white matter of the left parietal lobe. This likely represents a sequelae of remote small deep infarction unchanged from prior study. MIDLINE SHIFT OR HERNIATION: There is no mass effect. CEREBELLUM / BRAINSTEM: Brainstem and cerebellum have an unremarkable appearance. MIDLINE STRUCTURES:No abnormalities of the pituitary gland or pineal region are identified. INTRACRANIAL VESSELS:No abnormalities are identified on this noncontrast head CT. ORBITS: visualized portions of the orbits have an unremarkable appearance. SOFT TISSUES of HEAD: No significant abnormality. CALVARIUM: Evaluation of bone windows reveals no abnormalities. PARANASAL SINUSES / MASTOID AIR CELLS: Visualized portions of the paranasal sinuses are free from inflammatory mucosal disease. Mastoid air cells are normally pneumatized. IMPRESSION: 1. No acute intracranial abnormality. 2. 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 - Medical Decision Making Patient is a 60-year-old female who presents emergency room with complaints of headache, syncope, head injury. Patient was found to have extremely elevated blood pressure by EMS at 190/130. Patient blood pressure improved upon arrival. Patient still had a severe headache. Patient had a CT scan of the head which was negative for acute findings. CT was done to rule out acute intracranial process and ICH. I consulted neurology immediately after initial evaluation and a code stroke was initiated. Patient had labs done which were essentially unremarkable. Patient given Dilaudid and Zofran for her headache. Neurology recommendations were received. Patient admitted to the hospital service for further evaluation treatment. Patient will be admitted to rule out syncopal versus seizure. Critical care time documented due to the multiple reassessments, prolonged time at the bedside, interpretation of diagnostics and labs. - Differential Diagnosis Encephalopathy, hypertensive urgency, syncope, head injury, ICH, CVA, sz Critical Care Time: Yes Critical care time in (mins) excluding proc time.: 35 Critical care attestation.: If time is entered above; I have spent that time in minutes in the direct care of this critically ill patient, excluding procedure time. Critical Care Time: 35 minutes ED Disposition Clinical Impression: Syncope and collapse, Hypertensive urgency, Encephalopathy acute Headache Qualifiers: Headache type: unspecified Headache chronicity pattern: acute headache In tractability: not intractable Qualified Code(s): R51.9 - Headache, unspecified Disposition: -09 OP ADMIT IP TO THIS HOSP Is pt being admited?: Yes Does the pt Need Aspirin: No Condition: Critical Instructions: Syncope (ED) Time of Disposition: 00:38 - Assessment Assessment Interval: Baseline - Level of Consciousness 1a. Level of Consciousness: alert/keenly responsive - LOC Questions 1b. LOC Questions: answers both correctly - LOC Command 1c. LOC Commands: performs tasks correctly - Best Gaze 2. Best Gaze: normal - Visual 3. Visual: no visual loss - Facial Palsy 4. Facial Palsy: normal symmetrical movement - Motor Arm 5a. Motor Arm Left: no drift 5b. Motor Arm Right: no drift - Motor Leg 6a. Motor Leg Left: no drift 6b. Motor Leg Right: no drift - Limb Ataxia 7. Limb Ataxia: absent - Sensory 8. Sensory: normal - Best Language 9. Best Language: no aphasia - Dysarthria 10. Dysarthria: normal - Extinction and Inattention 11. Extinction/Inattention: no abnormality - Scoring Total Score: 0 Stroke Severity: No Stroke Symptoms
[2020-12-21 23:09] LABS: Basophils % (Auto) 0.3 % (0.0-1.8); Hematocrit 40.9 % (30.3-42.9); Hemoglobin 13.1 gm/dl (10.1-14.3); Lymphocytes # (Auto) 1.1 K/mm3 (1.2-5.4); Lymphocytes % (Auto) 12.1 % (13.4-35.0); Mean Corpuscular HGB Conc 32 % (30-34); Mean Corpuscular Volume 83 fl (79-97); Monocytes # (Auto) 0.3 K/mm3 (0.0-0.8); Monocytes % (Auto) 3.7 % (0.0-7.3); Platelet Count 352 K/mm3 (140-440); Red Blood Count 4.94 M/mm3 (3.65-5.03); Red Cell Distribution Width 15.6 % (13.2-15.2)
--- NOTE | 2020-12-21 23:11 | Cat Scan Report ---
CT HEAD WITHOUT CONTRAST INDICATION / CLINICAL INFORMATION: Clinical history obtained from Dr. Malone included Code stroke. Hypertensive emergency. Syncopal ep isode. Stroke-Like symptoms. TECHNIQUE: All CT scans at this location are performed using CT dose reduction for ALARA by means of automated e xposure control. COMPARISON: Head CT 02/21/2019 FINDINGS: HEMORRHAGE: No evidence of intracranial hemorrhage or extra-axial fluid collection. EXTRA-AXIAL SPACES: Cortical sulci, sylvian fissures and basilar cisterns have an unremarkable appear ance. VENTRICULAR SYSTEM: The third and lateral ventricles are of normal size and configuration. CEREBRAL PARENCHYMA: Mild periventricular white matter lucency is noted compatible with microvascular ischemic change. A more focal area of decreased brain parenchymal attenuation is observed in the whi te matter of the left parietal lobe. This likely represents a sequelae of remote small deep infarctio n unchanged from prior study. MIDLINE SHIFT OR HERNIATION: There is no mass effect. CEREBELLUM / BRAINSTEM: Brainstem and cerebellum have an unremarkable appearance. MIDLINE STRUCTURES:No abnormalities of the pituitary gland or pineal region are identified. INTRACRANIAL VESSELS:No abnormalities are identified on this noncontrast head CT. ORBITS: visualized portions of the orbits have an unremarkable appearance. SOFT TISSUES of HEAD: No significant abnormality. CALVARIUM: Evaluation of bone windows reveals no abnormalities. PARANASAL SINUSES / MASTOID AIR CELLS: Visualized portions of the paranasal sinuses are free from inf lammatory mucosal disease. Mastoid air cells are normally pneumatized. IMPRESSION: 1. No acute intracranial abnormality. 2. 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 CODE STROKE: Time of Communication (MANAGER OF WAREHOUSE/CDT): 2202 Central standard time Licensed Practitioner Receiving Report: Dr. Malone of the [facility] emergenc y department. Signer Name: Kannan Viera MD Signed: 12/21/2020 11:07 PM Workstation Name: [id number]
[2020-12-21 23:18] LABS: INR 1.01 (0.87-1.13)
[2020-12-21 23:19] LABS: Partial Thromboplastin Time 29.1 Sec. (24.2-36.6)
[2020-12-21 23:32] LABS: Creatine Kinase MB 6.7 ng/mL (0.0-4.0)
[2020-12-21 23:33] LABS: Alanine Aminotransferase 17 units/L (7-56); Albumin 4.1 g/dL (3.9-5); BUN/Creatinine Ratio 20; Blood Urea Nitrogen 16 mg/dL (7-17); Calcium 9.6 mg/dL (8.4-10.2); Hemolysis Index 3
--- NOTE | 2020-12-22 00:05 | Consultation ---
History of Present Illness History of present illness: [facility] Consult Note # Demographics Consult Type: General Neurology Patient Location: Emergency Room First Name: Tracy Last Name: Steve Age: 60 Gender: Female # HPI History: 60 year-old female with a history of 2 prior syncopal episodes presents with her third syncopal episode. She denies any preceding aura but does endorse right shoulder pain that is chronic and started prior to these episodes beginning. Prior work-up was reportedly unremarkable, including a cardiac work- up and EEG. She is complaining of a left-sided headache. BP is elevated. # Scores Time of exam and NIHSS ( Time): 12/21/2020, 23:23 Level of Consciousness 1a: [0] = Alert; keenly responsive LOC Questions 1b: [0] = Answers both questions correctly LOC Commands 1c: [0] = Performs both tasks correctly Best Gaze 2: [0] = Normal Visual 3: [0] = No visual loss Facial Palsy 4: [0] = Normal symmetrical movements Motor Arm Left 5a: [0] = No drift Motor Arm Right 5b: [0] = No drift Motor Leg Left 6a: [0] = No drift Motor Leg Right 6b: [0] = No drift Limb Ataxia 7: [0] = Absent Sensory 8: [0] = Normal Best Language 9: [0] = No aphasia Dysarthria 10: [0] = Normal Extinction and Inattention 11: [0] = No abnormality NIHSS Total: 0 # Exam Vitals: vital signs reviewed # PMH-FH-SH Past Medical History: hypertension # Assessment Impression: Episode of LOC - syncope vs less likely seizure # Plan Imaging: (urgency: STAT in ED): CT Head without contrast Diagnostic Test: echo without bubble study, EEG Therapy/Evaluation: PT/OT evaluation Other: telemetry monitoring, seizure precautions, I have discussed my recommendations with the referring provider Disposition: observation # Logistics Telemedicine: Interactive 2 way audio and visual telecommunication technology was utilized during this visit Electronically signed at 12/21/2020 23:33 (Eastern Time) by Kishore Manzo MD Medications and Allergies Allergies Allergy/AdvReac Type Severity Reaction Status Date / Time codeine Allergy Vomiting Verified 04/03/19 13:25 Penicillins Allergy Hives Verified 04/03/19 13:26 any type of seeds Allergy Unknown Uncoded 04/03/19 13:25 peanuts Allergy Unknown Uncoded 04/03/19 13:25 Home Medications Medication Instructions Recorded Confirmed Last Taken Type Lisinopril/Hydrochlorothiazide 1 tab PO QDAY 04/03/19 04/03/19 Unknown History [Zestoretic 20-12.5 mg] Metoprolol [Lopressor TAB] 50 mg PO QDAY 04/03/19 04/03/19 Unknown History Famotidine [Pepcid] 20 mg PO BID #20 tablet 04/05/19 Unknown Rx Nicotine [Habitrol] 14 mg TD DAILY #30 patch 04/05/19 Unknown Rx levoFLOXacin [Levaquin] 750 mg PO QDAY #12 tablet 04/05/19 Unknown Rx metroNIDAZOLE [Flagyl] 500 mg PO Q8HR #36 tablet 04/05/19 Unknown Rx oxyCODONE /ACETAMINOPHEN [Percocet 1 tab PO BID PRN #10 tablet 04/05/19 Unknown Rx 5/325] Naproxen 500 mg PO Q12H PRN #30 tablet 05/22/20 Unknown Rx predniSONE [Deltasone] 40 mg PO QDAY #12 tab 05/22/20 Unknown Rx Physical Examination - Vital Signs Vital Signs: Vital Signs Pulse Resp BP Pulse Ox 93 H 18 137/87 95 12/21/20 22:28 12/21/20 22:28 12/21/20 22:28 12/21/20 22:28 Results - Laboratory Findings CBC and BMP: 12/21/20 22:53 12/21/20 22:53 Abnormal Lab Findings: Abnormal Labs 12/21/20 12/21/20 22:53 22:53 MCH 27 L RDW 15.6 H Lymph % (Auto) 12.1 L Lymph # (Auto) 1.1 L Seg Neutrophils % 83.9 H Potassium 3.2 L Glucose 176 H Total Creatine Kinase 519 H CK-MB (CK-2) 6.7 H
[2020-12-22] MEDS ORDERED: ONDANSETRON 4 MG/2 ML INJ IV ONE (00:22)
[2020-12-22] MEDS ORDERED: HYDROmorphone 1 MG/1 ML INJ IV ONE (00:24)
--- NOTE | 2020-12-22 00:56 | XRay Report ---
CHEST 1 VIEW INDICATION / CLINICAL INFORMATION: weakness,. COMPARISON: Chest radiograph 02/22/2019 FINDINGS: SUPPORT DEVICES: None. HEART / MEDIASTINUM: No significant abnormality. LUNGS / PLEURA: There are mild bibasilar pulmonary opacities. No large pleural effusion. No pneumotho rax. ADDITIONAL FINDINGS: No significant additional findings. IMPRESSION: 1. Mild bibasilar pulmonary opacities, nonspecific and may reflect atelectasis versus developing pneu monia in the appropriate clinical setting. Signer Name: Terrie Bonds MD Signed: 12/22/2020 12:51 AM Workstation Name: [id number]
[2020-12-22] MEDS ORDERED: ACETAMINOPHEN 325 MG TAB PO PRN (01:14)
[2020-12-22] MEDS ORDERED: MAGNESIUM HYDROXIDE (MOM) ORAL LIQD UDC PO PRN (01:14)
[2020-12-22] MEDS ORDERED: ONDANSETRON 4 MG/2 ML INJ IV PRN (01:14)
[2020-12-22] MEDS ORDERED: POTASSIUM CHLORIDE ER 20 MEQ TAB PO ONE ×2 (01:20→04:00)
--- NOTE | 2020-12-22 01:49 | History and Physical Report ---
History of Present Illness Date of examination: 12/22/20 Date of admission: 12/22/2020 Chief complaint: A, lightheadedness, syncopal episode History of present illness: 60-year-old -[place]is[place] female who is an ongoing smoker with history of syncopal episodes x2, hypertension, and HLD who presents to [facility] ED with complaints of headache, weakness, lightheadedness, and syncopal episode. Patient states she was in the kitchen getting a glass of water when she felt " weird", and the next thing she recalls is waking up in the EMS transport. Patient states that her granddaughter told her that she passed out and hit the back of her head. She is unsure of the length of time that she lost consciousness . Denies any hematoma, bruising, or bleeding. At the time of my examination patient states she no longer has a headache after receiving pain medicine in the ED. Upon arrival to the ED, she complained of severe 10 out of 10 throbbing headache. Review of medical records shows patient had a similar syncopal episode in February 2019, syncopal work-up was negative, and was treated with meclizine. Denies noncompliance with meds, fever, chills, cough, myalgias, abdominal pain, nausea, vomiting, diarrhea, illicit drug use, or recent sick contacts Past History Past Medical History: hypertension, hyperlipidemia, other (Syncopal episode x2, [place] (mild), diverticulitis) Past Surgical History: cholecystectomy, hysterectomy Social history: (), lives with family (Granddaughter), smoking (Smokes half pack a day), full code. denies: alcohol abuse, prescription drug abuse, IV drug use Family history: hypertension Medications and Allergies Allergies Allergy/AdvReac Type Severity Reaction Status Date / Time codeine Allergy Vomiting Verified 04/03/19 13:25 Penicillins Allergy Hives Verified 04/03/19 13:26 any type of seeds Allergy Unknown Uncoded 04/03/19 13:25 peanuts Allergy Unknown Uncoded 04/03/19 13:25 Home Medications Medication Instructions Recorded Confirmed Last Taken Type Lisinopril/Hydrochlorothiazide 1 tab PO QDAY 04/03/19 04/03/19 Unknown History [Zestoretic 20-12.5 mg] Metoprolol [Lopressor TAB] 50 mg PO QDAY 04/03/19 04/03/19 Unknown History Famotidine [Pepcid] 20 mg PO BID #20 tablet 04/05/19 Unknown Rx Nicotine [Habitrol] 14 mg TD DAILY #30 patch 04/05/19 Unknown Rx levoFLOXacin [Levaquin] 750 mg PO QDAY #12 tablet 04/05/19 Unknown Rx metroNIDAZOLE [Flagyl] 500 mg PO Q8HR #36 tablet 04/05/19 Unknown Rx oxyCODONE /ACETAMINOPHEN [Percocet 1 tab PO BID PRN #10 tablet 04/05/19 Unknown Rx 5/325] Naproxen 500 mg PO Q12H PRN #30 tablet 05/22/20 Unknown Rx predniSONE [Deltasone] 40 mg PO QDAY #12 tab 05/22/20 Unknown Rx Active Meds: Active Medications Acetaminophen (Acetaminophen 325 Mg Tab) 650 mg PO Q4H PRN PRN Reason: Pain, Mild (1-3) Aspirin (Aspirin 325 Mg Tab) 325 mg PO QDAY GADIEL Atorvastatin Calcium (Atorvastatin 40 Mg Tab) 40 mg PO QHS GADIEL Bisacodyl (Bisacodyl 10 Mg Rect Supp) 10 mg [place] QDAY PRN PRN Reason: Constipation Docusate Sodium (Docusate Sodium 100 Mg Cap) 100 mg PO BID GADIEL Potassium Chloride (Kcl 10meq/100ml) 10 meq in 100 mls @ 100 mls/hr IV Q1H GADIEL Stop: 12/22/20 03:59 Magnesium Hydroxide (Magnesium Hydroxide (Mom) Oral Liqd Udc) 30 ml PO Q4H PRN PRN Reason: Constipation Nicotine (Nicotine 14 Mg/24 Hr Patch) 14 mg TD QDAY GADIEL Ondansetron HCl (Ondansetron 4 Mg/2 Ml Inj) 4 mg IV Q6H PRN PRN Reason: Nausea And Vomiting Sodium Chloride (Sodium Chloride 0.9% 10 Ml Flush Syringe) 10 ml IV PRN PRN PRN Reason: LINE FLUSH Review of Systems All systems: negative (As noted in HPI) Exam - Physical Exam Narrative exam: Physical exam General appearance: Present: No acute distress, alert and oriented 3, older adult -Wallisian female - EENT Eyes: Present: PERRL, EOM intact ENT: hearing intact, normal dentition - Neck Neck: Present: supple, normal ROM - Respiratory Respiratory effort: Non-labored Respiratory: Clear throughout - Cardiovascular Heart rate: 90 (bpm) Rhythm: Sinus Heart Sounds: Present: S1 & S2. Absent: rub, click - Extremities Extremities: no ischemia, pulses intact, - Peripheral Assessment Peripheral Pulses: within normal limits - Abdominal General gastrointestinal: soft, non-tender, normal bowel sounds - Integumentary Integumentary: Present: warm, dry - Musculoskeletal Musculoskeletal: Able to move all extremities -Neurological Neurological: CN II-XII intact - Psychiatric Psychiatric: cooperative - Constitutional Vitals: Temp Pulse Resp BP Pulse Ox 88 25 H 150/80 93 12/21/20 23:46 12/21/20 23:46 12/21/20 23:46 12/21/20 23:46 HEART Score - HEART Score Troponin: Troponin T < 0.010 ng/mL (0.00-0.029) 12/21/20 22:53 Results - Labs CBC & Chem 7: 12/21/20 22:53 12/21/20 22:53 Labs: Laboratory Last Values WBC 8.7 K/mm3 (4.5-11.0) 12/21/20 22:53 RBC 4.94 M/mm3 (3.65-5.03) 12/21/20 22:53 Hgb 13.1 gm/dl (10.1-14.3) 12/21/20 22:53 Hct 40.9 % (30.3-42.9) 12/21/20 22:53 MCV 83 fl (79-97) 12/21/20 22:53 MCH 27 pg (28-32) L 12/21/20 22:53 MCHC 32 % (30-34) 12/21/20 22:53 RDW 15.6 % (13.2-15.2) H 12/21/20 22:53 Plt Count 352 K/mm3 (140-440) 12/21/20 22:53 Lymph % (Auto) 12.1 % (13.4-35.0) L 12/21/20 22:53 [place] % (Auto) 3.7 % (0.0-7.3) 12/21/20 22:53 Eos % (Auto) 0.0 % (0.0-4.3) 12/21/20 22:53 Baso % (Auto) 0.3 % (0.0-1.8) 12/21/20 22:53 Lymph # (Auto) 1.1 K/mm3 (1.2-5.4) L 12/21/20 22:53 [place] # (Auto) 0.3 K/mm3 (0.0-0.8) 12/21/20 22:53 Eos # (Auto) 0.0 K/mm3 (0.0-0.4) 12/21/20 22:53 Baso # (Auto) 0.0 K/mm3 (0.0-0.1) 12/21/20 22:53 Seg Neutrophils % 83.9 % (40.0-70.0) H 12/21/20 22:53 Seg Neutrophils # 7.3 K/mm3 (1.8-7.7) 12/21/20 22:53 PT 13.1 Sec. (12.2-14.9) 12/21/20 22:53 INR 1.01 (0.87-1.13) 12/21/20 22:53 APTT 29.1 Sec. (24.2-36.6) 12/21/20 22:53 Thrombin Time 17.0 Sec. (15.1-19.6) 12/21/20 22:53 Sodium 137 mmol/L (137-145) 12/21/20 22:53 Potassium 3.2 mmol/L (3.6-5.0) L 12/21/20 22:53 Chloride 99.2 mmol/L (98-107) 12/21/20 22:53 Carbon Dioxide 25 mmol/L (22-30) 12/21/20 22:53 Anion Gap 16 mmol/L 12/21/20 22:53 BUN 16 mg/dL (7-17) 12/21/20 22:53 Creatinine 0.8 mg/dL (0.6-1.2) 12/21/20 22:53 Estimated GFR > 60 ml/min 12/21/20 22:53 BUN/Creatinine Ratio 20 % 12/21/20 22:53 Glucose 176 mg/dL (65-100) H 12/21/20 22:53 Calcium 9.6 mg/dL (8.4-10.2) 12/21/20 22:53 Total Bilirubin < 0.20 mg/dL (0.1-1.2) 12/21/20 22:53 AST 18 units/L (5-40) 12/21/20 22:53 ALT 17 units/L (7-56) 12/21/20 22:53 Alkaline Phosphatase 81 units/L (35-129) 12/21/20 22:53 Total Creatine Kinase 519 units/L (30-135) H 12/21/20 22:53 CK-MB (CK-2) 6.7 ng/mL (0.0-4.0) H 12/21/20 22:53 CK-MB (CK-2) Rel Index 1.2 (0-4) 12/21/20 22:53 Troponin T < 0.010 ng/mL (0.00-0.029) 12/21/20 22:53 Total Protein 7.1 g/dL (6.3-8.2) 12/21/20 22:53 Albumin 4.1 g/dL (3.9-5) 12/21/20 22:53 Albumin/Globulin Ratio 1.4 % 12/21/20 22:53 - Diagnostic Impressions Diagnostic Impressions: CXR: FINDINGS: SUPPORT DEVICES: None. HEART / MEDIASTINUM: No significant abnormality. LUNGS / PLEURA: There are mild bibasilar pulmonary opacities. No large pleural effusion. No pneumothorax. ADDITIONAL FINDINGS: No significant additional findings. IMPRESSION: 1. Mild bibasilar pulmonary opacities, nonspecific and may reflect atelectasis versus developing pneumonia in the appropriate clinical setting. CT Head: COMPARISON: Head CT 02/21/2019 FINDINGS: HEMORRHAGE: No evidence of intracranial hemorrhage or extra-axial fluid collection. EXTRA-AXIAL SPACES: Cortical sulci, sylvian fissures and basilar cisterns have an unremarkable appearance. VENTRICULAR SYSTEM: The third and lateral ventricles are of normal size and configuration. CEREBRAL PARENCHYMA: Mild periventricular white matter lucency is noted compatible with microvascular ischemic change. A more focal area of decreased brain parenchymal attenuation is observed in the white matter of the left parietal lobe. This likely represents a sequelae of remote small deep infarction unchanged from prior study. MIDLINE SHIFT OR HERNIATION: There is no mass effect. CEREBELLUM / BRAINSTEM: Brainstem and cerebellum have an unremarkable appearance. MIDLINE STRUCTURES:No abnormalities of the pituitary gland or pineal region are identified. INTRACRANIAL VESSELS:No abnormalities are identified on this noncontrast head CT. ORBITS: visualized portions of the orbits have an unremarkable appearance. SOFT TISSUES of HEAD: No significant abnormality. CALVARIUM: Evaluation of bone windows reveals no abnormalities. PARANASAL SINUSES / MASTOID AIR CELLS: Visualized portions of the paranasal sinuses are free from inflammatory mucosal disease. Mastoid air cells are normally pneumatized. IMPRESSION: 1. No acute intracranial abnormality. 2. 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 -Evaluated by telemetry neuro in ED recs appreciated -On ASA, and Statin -MRI, EEG, echo, carotid duplex pending -Inpatient neurology consult pending -Orthostatic vitals -Implement fall and seizure precautions -PT/ OT eval pending Hypokalemia -Mild -Ordered replacement -Monitor -Replace as needed HTN -Monitor BP -Resume home hypertensive meds once med rec has been updated Tobacco abuse -Current every day smoker, smokes half pack per day -Counseled for cessation -Nicotine patch when necessary DVT PPx -on Heparin and SCD's VTE prophylaxis?: Chemical, Mechanical Plan of care discussed with patient/family: Yes
[2020-12-22] MEDS: POTASSIUM CHLORIDE 10 MEQ 10 MEQ/100 ML BAG IV SCH ×2 (03:53→06:04)
[2020-12-22] MEDS ORDERED: SODIUM CHLORIDE 0.9% 500 ML 500 ML ONE (04:00)
[2020-12-22 07:52] LABS: Bilirubin,Urine NEG (Negative); Blood,Urine SM (Negative); Color,Urine Yellow (Yellow); Mucus,Urine 2+ /HPF; Protein,Urine <15 mg/dL mg/dL (Negative)
[2020-12-22 07:58] LABS: Amphetamine Screen,Urine Negative; Benzodiazepines Screen,Urine Negative; Cocaine Screen,Urine Negative; Methadone Screen,Urine Negative; Opiate Screen,Urine Negative
[2020-12-22 08:44] LABS: Cannabinoid Screen,Urine PRESUMPTIVE POSITIVE
[2020-12-22] MEDS: ASPIRIN 325 MG TAB PO SCH (10:09)
[2020-12-22] MEDS: DOCUSATE SODIUM 100 MG CAP PO SCH ×2 (10:10→21:20)
[2020-12-22] MEDS: NICOTINE 14 MG/24 HR PATCH TD SCH (10:11)
[2020-12-22] MEDS: HEPARIN 5,000 UNIT/1 ML VIAL SUB-Q SCH ×2 (10:11→21:20)
--- NOTE | 2020-12-22 10:49 | Magnetic Resonance Report ---
NONENHANCED AND CONTRAST-ENHANCED MR SCAN OF THE BRAIN: INDICATION / CLINICAL INFORMATION: MAIN. Syncope TECHNIQUE: Multiplanar, multisequence MR images of the brain obtained before and after 16 mL of Clariscan COMPARISON: CT scan of the head from 12/21/2020 FINDINGS: BRAIN / INTRACRANIAL CONTENTS: No acute ischemia, acute hemorrhage, mass effect, midline shift, or hy drocephalus. No chronic infarct or atrophy. Confluent patchy periventricular white matter hyperinten sity around the atria of the lateral ventricles probably due to mild cerebral atherosclerotic changes in the contrast enhanced coronal and sagittal images, no enhancing parenchymal or meningeal lesions; postgadolinium transverse T1-weighted images not available in [facility] P[facility]; petrous apex serous effusi on bilaterally more on the right side; this is of no clinical significance; CRANIOCERVICAL JUNCTION: No significant abnormality. VASCULAR FLOW-VOIDS: No significant abnormality. ORBITS: No significant abnormality of visualized orbits. SINUSES / MASTOIDS: Small retention cyst in the right sphenoid sinus; minimal mucosal thickening in t he mastoid air cells ADDITIONAL FINDINGS: Empty sella IMPRESSION: No acute focal parenchymal lesion in the brain Signer Name: Amira Sherwood MD Signed: 12/22/2020 10:44 AM Workstation Name: [id number]
--- NOTE | 2020-12-22 10:49 | Consultation ---
History of Present Illness Consult date: 12/22/20 Reason for Consult: Syncope vs. Seizure Chief complaint: Syncope vs. Seizure History of present illness: Per EMR - 60 yo female with sycopal episodes, htn, hld, who presents where she suffered a loss of consciousness event wit amnesia to event post-loss of consciousness for quite a length of time to where she remembers only waking up with the EMS team at her location. She hit the back of her head with this event. Patient is not in room during rounds. Past History Past Medical History: hypertension, hyperlipidemia, other (Syncopal episode x2, [place] (mild), diverticulitis) Past Surgical History: cholecystectomy, hysterectomy Social history: (), lives with family (Granddaughter), smoking (Smokes half pack a day), full code. denies: alcohol abuse, prescription drug abuse, IV drug use Family history: hypertension Medications and Allergies Allergies Allergy/AdvReac Type Severity Reaction Status Date / Time codeine Allergy Vomiting Verified 04/03/19 13:25 Penicillins Allergy Hives Verified 04/03/19 13:26 any type of seeds Allergy Unknown Uncoded 04/03/19 13:25 peanuts Allergy Unknown Uncoded 04/03/19 13:25 Home Medications Medication Instructions Recorded Confirmed Last Taken Type Lisinopril/Hydrochlorothiazide 1 tab PO QDAY 04/03/19 04/03/19 Unknown History [Zestoretic 20-12.5 mg] Metoprolol [Lopressor TAB] 50 mg PO QDAY 04/03/19 04/03/19 Unknown History Famotidine [Pepcid] 20 mg PO BID #20 tablet 04/05/19 Unknown Rx Nicotine [Habitrol] 14 mg TD DAILY #30 patch 04/05/19 Unknown Rx levoFLOXacin [Levaquin] 750 mg PO QDAY #12 tablet 04/05/19 Unknown Rx metroNIDAZOLE [Flagyl] 500 mg PO Q8HR #36 tablet 04/05/19 Unknown Rx oxyCODONE /ACETAMINOPHEN [Percocet 1 tab PO BID PRN #10 tablet 04/05/19 Unknown Rx 5/325] Naproxen 500 mg PO Q12H PRN #30 tablet 05/22/20 Unknown Rx predniSONE [Deltasone] 40 mg PO QDAY #12 tab 05/22/20 Unknown Rx Active Meds: Active Medications Acetaminophen (Acetaminophen 325 Mg Tab) 650 mg PO Q4H PRN PRN Reason: Pain, Mild (1-3) Aspirin (Aspirin 325 Mg Tab) 325 mg PO QDAY GADIEL Atorvastatin Calcium (Atorvastatin 40 Mg Tab) 40 mg PO QHS GADIEL Bisacodyl (Bisacodyl 10 Mg Rect Supp) 10 mg [place] QDAY PRN PRN Reason: Constipation Docusate Sodium (Docusate Sodium 100 Mg Cap) 100 mg PO BID GADIEL Heparin Sodium (Porcine) (Heparin 5,000 Unit/1 Ml Vial) 5,000 unit SUB-Q BID GADIEL Magnesium Hydroxide (Magnesium Hydroxide (Mom) Oral Liqd Udc) 30 ml PO Q4H PRN PRN Reason: Constipation Nicotine (Nicotine 14 Mg/24 Hr Patch) 14 mg TD QDAY GADIEL Ondansetron HCl (Ondansetron 4 Mg/2 Ml Inj) 4 mg IV Q6H PRN PRN Reason: Nausea And Vomiting Sodium Chloride (Sodium Chloride 0.9% 10 Ml Flush Syringe) 10 ml IV PRN PRN PRN Reason: LINE FLUSH Physical Examination - Vital Signs Vital Signs: Vital Signs Pulse Resp BP Pulse Ox 93 H 18 137/87 95 12/21/20 22:28 12/21/20 22:28 12/21/20 22:28 12/21/20 22:28 - Physical Exam Narrative exam: Patient is not in room during rounds. Results - Laboratory Findings CBC and BMP: 12/21/20 22:53 12/22/20 07:51 Abnormal Lab Findings: Abnormal Labs 12/21/20 12/21/20 22:53 22:53 MCH 27 L RDW 15.6 H Lymph % (Auto) 12.1 L Lymph # (Auto) 1.1 L Seg Neutrophils % 83.9 H Potassium 3.2 L Glucose 176 H Total Creatine Kinase 519 H CK-MB (CK-2) 6.7 H Assessment and Plan 60 yo female with htn, hld, syncopal events in the past, who presents w/ a loss of consciousness event with a prolonged period prior to consciousness with a closed head injury secondary to the fall. 1. Syncope - ordered cta head/neck w/ wo contrast; non-neurogenic workup per primary team. 2. Seizure - EEG pending; mri brain w/ wo contrast is unremarkable. 3. TIA - aspirin 81 mg po qday; pending echo ordered cta head/neck w/ wo contrast (if no contraindications), ldl/tsh, pt/ot evaluation/monitoring. 4. Post-concussive Syndrome - monitor clinically. 5. Hypertension - goal SBP 160-200 mmHg and DBP 80-100 mmHg until MRI results are available. 6. Hyperlipidemia - goal LDL of 70. Kishore Flores MD Neurology
--- NOTE | 2020-12-22 11:13 | Consultation ---
History of Present Illness Consult date: 12/22/20 Consult reason: syncope History of present illness: Patient is a 60-year-old woman with a history of chronic hypertension who presen prachi to the hospital following a syncopal episode. 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 There was no prodrome, no palpitations, no chest pain, no diaphoresis and no seizure activity was reported. In the emergency room ECG was normal sinus rhythm with nonspecific T wave changes. Blood pressure in the field was reported at over 200 systolic, but by the time of arrival in the emergency room was 150s systolic. Chest x-ray showed normal cardiac silhouette, clear lungs. A CT scan of the head reported no acute findings. The patient has had a brain MRI, results are pending. An echocardiogram today preliminary shows normal left ventricular systolic function with ejection fraction greater than 60%. She reports a similar syncopal episode last year for which she reported to [facility]. After that, she saw a filling machine operator as outpatient, and underwent an echocardiogram and thallium stress test both of which were reported negative. Past History Past Medical History: hypertension, hyperlipidemia, other (Syncopal episode x2, diverticulitis) Past Surgical History: cholecystectomy, hysterectomy Social history: (), lives with family (Granddaughter), smoking (Smokes half pack a day), full code. denies: alcohol abuse, prescription drug abuse, IV drug use Family history: hypertension Medications and Allergies Allergies Allergy/AdvReac Type Severity Reaction Status Date / Time codeine Allergy Vomiting Verified 04/03/19 13:25 Penicillins Allergy Hives Verified 04/03/19 13:26 any type of seeds Allergy Unknown Uncoded 04/03/19 13:25 peanuts Allergy Unknown Uncoded 04/03/19 13:25 Home Medications Medication Instructions Recorded Confirmed Last Taken Type Lisinopril/Hydrochlorothiazide 1 tab PO QDAY 04/03/19 04/03/19 Unknown History [Zestoretic 20-12.5 mg] Metoprolol [Lopressor TAB] 50 mg PO QDAY 04/03/19 04/03/19 Unknown History Famotidine [Pepcid] 20 mg PO BID #20 tablet 04/05/19 Unknown Rx Nicotine [Habitrol] 14 mg TD DAILY #30 patch 04/05/19 Unknown Rx levoFLOXacin [Levaquin] 750 mg PO QDAY #12 tablet 04/05/19 Unknown Rx metroNIDAZOLE [Flagyl] 500 mg PO Q8HR #36 tablet 04/05/19 Unknown Rx oxyCODONE /ACETAMINOPHEN [Percocet 1 tab PO BID PRN #10 tablet 04/05/19 Unknown Rx 5/325] Naproxen 500 mg PO Q12H PRN #30 tablet 05/22/20 Unknown Rx predniSONE [Deltasone] 40 mg PO QDAY #12 tab 05/22/20 Unknown Rx Active Meds: Active Medications Acetaminophen (Acetaminophen 325 Mg Tab) 650 mg PO Q4H PRN PRN Reason: Pain, Mild (1-3) Aspirin (Aspirin 325 Mg Tab) 325 mg PO QDAY GADIEL Atorvastatin Calcium (Atorvastatin 40 Mg Tab) 40 mg PO QHS GADIEL Bisacodyl (Bisacodyl 10 Mg Rect Supp) 10 mg PA QDAY PRN PRN Reason: Constipation Docusate Sodium (Docusate Sodium 100 Mg Cap) 100 mg PO BID [facility] Heparin Sodium (Porcine) (Heparin 5,000 Unit/1 Ml Vial) 5,000 unit SUB-Q BID [facility] Magnesium Hydroxide (Magnesium Hydroxide (Mom) Oral Liqd Udc) 30 ml PO Q4H PRN PRN Reason: Constipation Nicotine (Nicotine 14 Mg/24 Hr Patch) 14 mg TD QDAY GADIEL Ondansetron HCl (Ondansetron 4 Mg/2 Ml Inj) 4 mg IV Q6H PRN PRN Reason: Nausea And Vomiting Sodium Chloride (Sodium Chloride 0.9% 10 Ml Flush Syringe) 10 ml IV PRN PRN PRN Reason: LINE FLUSH Review of Systems Cardiovascular: syncope, no chest pain, no orthopnea, no palpitations, no rapi d/irregular heart beat, no edema, no lightheadedness, no shortness of breath Physical Examination Vital Signs Pulse Resp BP Pulse Ox 93 H 18 137/87 95 12/21/20 22:28 12/21/20 22:28 12/21/20 22:28 12/21/20 22:28 General appearance: no acute distress HEENT: Positive: PERRL Neck: Positive: neck supple Cardiac: Positive: Reg Rate and Rhythm Lungs: Positive: Decreased Breath Sounds Neuro: Positive: Grossly Intact Abdomen: Positive: Soft Female genitourinary: deferred Skin: Positive: Clear Extremities: Absent: edema Results 12/21/20 22:53 12/22/20 07:51 Cardiac Enzymes 12/21/20 Range/Units 22:53 AST 18 (5-40) units/L CK-MB (CK-2) 6.7 H (0.0-4.0) ng/mL Coagulation 12/21/20 Range/Units 22:53 PT 13.1 (12.2-14.9) Sec. INR 1.01 (0.87-1.13) APTT 29.1 (24.2-36.6) Sec. CBC 12/21/20 Range/Units 22:53 WBC 8.7 (4.5-11.0) K/mm3 RBC 4.94 (3.65-5.03) M/mm3 Hgb 13.1 (10.1-14.3) gm/dl Hct 40.9 (30.3-42.9) % Plt Count 352 (140-440) K/mm3 Lymph # (Auto) 1.1 L (1.2-5.4) K/mm3 Weld # (Auto) 0.3 (0.0-0.8) K/mm3 Eos # (Auto) 0.0 (0.0-0.4) K/mm3 Baso # (Auto) 0.0 (0.0-0.1) K/mm3 Comprehensive Metabolic Panel 12/21/20 12/22/20 Range/Units 22:53 07:51 Sodium 137 (137-145) mmol/L Potassium 3.2 L 4.2 D (3.6-5.0) mmol/L Chloride 99.2 (98-107) mmol/L Carbon Dioxide 25 (22-30) mmol/L BUN 16 (7-17) mg/dL Creatinine 0.8 (0.6-1.2) mg/dL Glucose 176 H (65-100) mg/dL Calcium 9.6 (8.4-10.2) mg/dL AST 18 (5-40) units/L ALT 17 (7-56) units/L Alkaline Phosphatase 81 (35-129) units/L Total Protein 7.1 (6.3-8.2) g/dL Albumin 4.1 (3.9-5) g/dL EKG interpretations - Telemetry EKG Rhythm: Sinus Rhythm Assessment and Plan - Patient Problems (1) Syncope and collapse Current Visit: Yes Status: Acute Plan to address problem: Patient admitted with recurrent syncope. 6 months ago, cardiac work-up for similar syncopal episode was negative. On the current admission, ECG and cardiac enzymes are normal, echocardiogram shows left ventricular ejection fraction greater than 65%. Recommend further evaluation as indicated for neuro syncope. In addition, as outpatient we will recommend a 30-day event monitor for further cardiac arrhythmia evaluation.
--- NOTE | 2020-12-22 11:40 | Vascular Lab Report ---
DUPLEX DOPPLER ULTRASOUND CAROTID, BILATERAL INDICATION / CLINICAL INFORMATION: Syncope. COMPARISON: Carotid Doppler 02/22/2019. FINDINGS: RIGHT CAROTID: Mild atherosclerotic plaque. - PLAQUE ESTIMATE (%): < 50% - CCA velocity: 101 cm/sec. - ICA peak systolic velocity: 69 cm/sec. - ICA/CCA PSV Ratio: 0.7 Right Vertebral Artery: Antegrade flow. LEFT CAROTID: Mild atherosclerotic plaque. - PLAQUE ESTIMATE (%): < 50% - CCA velocity: 75 cm/sec. - ICA peak systolic velocity: 91 cm/sec. - ICA/CCA PSV Ratio: 1.2 Left Vertebral Artery: Antegrade flow. IMPRESSION: 1. Right Internal Carotid Artery: Less than 50% diameter stenosis. 2. Left Internal Carotid Artery: Less than 50% diameter stenosis. Velocity criteria are extrapolated from diameter data as defined by the Society of Radiologists in Ul trasound Consensus Conference, Radiology 2003; 229;340-346. NO STENOSIS (NORMAL) - Plaque = none; ICA PSV < 125 cm/sec; ICA/CCA PSV Ratio < 2.0 <50% STENOSIS - Plaque < 50%; ICA PSV < 125 cm/sec; ICA/CCA PSV Ratio < 2.0 50-69% STENOSIS - Plaque > 50%; ICA PSV = 125-230 cm/sec; ICA/CCA PSV Ratio = 2.0-4.0 >70% BUT <100% STENOSIS - Plaque > 50%; ICA PSV > 230 cm/sec; ICA/CCA PSV Ratio > 4.0 NEAR OCCLUSION - Plaque = visible lumen; ICA PSV = high/low/none; ICA/CCA PSV Ratio = variable TOTAL OCCLUSION - Plaque = no lumen; ICA PSV = none; ICA/CCA PSV Ratio = N/A Scribed by: Paula Bright RDMS, RVT Scribed: 12/22/2020 10:11 AM Signer Name: Martín Holliday MD Signed: 12/22/2020 11:36 AM Workstation Name: [id number]
--- NOTE | 2020-12-22 11:43 | Event Note ---
Date: 12/22/20 Brief progress note This is the second IMS visit of the day Patient had complete history and physical earlier this morning Cardiology and neurology notes reviewed Patient is awake and alert and not in any distress and she offers no specific complaints at this time Lab results reviewed Syncope Rule out vasovagal versus seizure CT of the head results reviewed MRI ordered EEG ordered by neurology Hypertension Fair Hypokalemia Improved
[2020-12-22] MEDS ORDERED: HYDROmorphone 1 MG/1 ML INJ IV PRN (11:47)
--- NOTE | 2020-12-22 12:18 | Cat Scan Report ---
CTA NECK WITH CONTRAST HISTORY: Dissection COMPARISON: None. TECHNIQUE: Routine CTA of the neck was performed. 3-D/MIP reformats were postprocessed. Percentage s tenosis is determined by direct quantitative measurements of diseased internal carotid artery diamete r compared with normal distal internal carotid artery reference segments or by criteria similar to NA SCET where applicable.All CT scans at this location are performed using CT dose reduction for ALARA b y means of automated exposure control CONTRAST: 100 ml of Omnipaque 350 FINDINGS: Aortic arch: No significant abnormality. Cervical vertebral arteries: Venous contamination obscuring the details of the left vertebral origin; extraosseous (C1), foraminal (V2), extraspinal (V3) and intradural segments (V4) of both vertebral a rteries are normal Common carotid arteries: No significant abnormality. Carotid bifurcations: Nonstenotic calcified atheromatous plaques; proximal internal carotid artery is normal bilaterally Cervical internal carotid arteries: No significant abnormality. No evidence of dissection Additional findings: None. IMPRESSION: No evidence of dissection in the cervical vertebral and internal carotid arteries Nonstenotic calcified plaques in the proximal internal carotid arteries bilaterally Signer Name: Amira Sherwood MD Signed: 12/22/2020 12:14 PM Workstation Name: [id number]
--- NOTE | 2020-12-22 12:24 | Cat Scan Report ---
CTA HEAD WITH CONTRAST HISTORY: Dissection COMPARISON: None. TECHNIQUE: Routine non-contrast CT Head, CTA of the head and post-contrast CT Head are performed. 3-D /MIP reformats postprocessed. All CT scans at this location are performed using CT dose reduction for ALARA by means of automated exposure control CONTRAST: 100 ml of Omnipaque 350 FINDINGS: CTA Head: Intracranial vertebral arteries: No significant abnormality. Basilar artery: No significant abnormality. Posterior cerebral arteries: No significant abnormality. Intracranial internal carotid arteries: Vascular calcification; ophthalmic and the communicating segm ents and internal carotid artery terminus normal Anterior cerebral arteries: No significant abnormality. Middle cerebral arteries: No significant abnormality. Dural venous sinuses:Not optimally opacified. No significant abnormality. Additional findings: None. IMPRESSION: 1. No significant abnormality. Signer Name: Amira Sherwood MD Signed: 12/22/2020 12:20 PM Workstation Name: [id number]
[2020-12-22] MEDS: METOPROLOL TARTRATE 25 MG TAB PO SCH ×2 (18:07→21:20)
--- NOTE | 2020-12-22 18:45 | Electrocardiograph Report ---
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 No previous ECG available for comparison Electronically Signed On 12-22-2020 18:44:49 EDT by Pedro Luis Molina
[2020-12-23 06:06] LABS: Chol/HDL Ratio 3.62 %
[2020-12-23 10:15] VITALS: BP 136/82
[2020-12-23] MEDS: DOCUSATE SODIUM 100 MG CAP PO SCH (10:24)
[2020-12-23] MEDS: ASPIRIN 325 MG TAB PO SCH (10:24)
[2020-12-23] MEDS: METOPROLOL TARTRATE 25 MG TAB PO SCH (10:24)
[2020-12-23] MEDS: NICOTINE 14 MG/24 HR PATCH TD SCH (10:26)
[2020-12-23] MEDS: HEPARIN 5,000 UNIT/1 ML VIAL SUB-Q SCH (10:26)
--- NOTE | 2020-12-23 11:36 | Discharge Summary ---
Providers - Providers Date of Admission: 12/22/20 01:01 Date of discharge: 12/23/20 Attending physician: JACK XAVIER 12/22/20 Consult to Physician [CONS] Routine Comment: Consulting Provider: SKYLER ARGUELLES Physician Instructions: Reason For Exam: syncope, ?/seizure 12/22/20 01:14 Occupational Therapy Evaluate and Treat [CONS] Routine Comment: Reason For Exam: Neuro deficits Physical Therapy Evaluation and Treat [CONS] Routine Comment: Reason For Exam: Neuro deficits 12/22/20 08:40 Consult to Physician [CONS] Routine Comment: Consulting Provider: HALLE KENNEDY Physician Instructions: Reason For Exam: syncope 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 Patient states she was in the kitchen getting a glass of water when she felt " weird", and the next thing she recalls is waking up in the EMS transport. Patient states that her granddaughter told her that she passed out and hit the back of her head. She is unsure of the length of time that she lost consciousness . Denies any hematoma, bruising, or bleeding. At the time of my examination patient states she no longer has a headache after receiving pain medicine in the ED. Upon arrival to the ED, she complained of severe 10 out of 10 throbbing headache. Review of medical records shows patient had a similar syncopal episode in February 2019, syncopal work-up was negative, and was treated with meclizine. 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 Mark Novak several times and also left a text message and did not get any return call or text message I discussed with patient if she wants to wait till Friday to get the EEG She prefers to go home and follow-up with her primary care physician on Friday and get a referral to neurologist as an outpatient From my point of use patient is medically stable for discharge Strictly no driving , swimming or operating machinery until cleared by neurology Discussed with patient Hypokalemia -Mild -Improved with supplement HTN -Resume home hypertensive meds Tobacco abuse -Current every day smoker, smokes half pack per day -Counseled for cessation Disposition: DC-01 TO HOME OR SELFCARE Final Discharge Diagnosis (Prints w/discharge instructions): Syncope Time spent for discharge: 36 min Core Measure Documentation - Palliative Care Palliative Care/ Comfort Measures: Not Applicable - Core Measures Any of the following diagnoses?: none Exam - Constitutional Vitals: Temp Pulse Resp BP Pulse Ox 98.0 F 73 18 136/82 91 12/23/20 09:23 12/23/20 10:24 12/23/20 09:23 12/23/20 10:24 12/23/20 09:23 General appearance: Present: no acute distress, well-nourished - EENT Eyes: Present: PERRL, EOM intact ENT: hearing intact, clear oral mucosa - Neck Neck: Present: supple, normal ROM - Respiratory Respiratory effort: normal Respiratory: bilateral: CTA - Cardiovascular Rhythm: regular Heart Sounds: Present: S1 & S2 - Extremities Extremities: No edema - Abdominal General gastrointestinal: Present: soft, non-tender Female genitourinary: Present: deferred - Rectal Rectal Exam: deferred - Integumentary Integumentary: Present: clear - Musculoskeletal Musculoskeletal: strength equal bilaterally - Psychiatric Psychiatric: appropriate mood/affect - Neurologic Neurologic: no focal deficits Plan Activity: advance as tolerated, no driving until cleared by PCP Weight Bearing Status: Full Weight Bearing Diet: regular, low fat, low cholesterol, low salt Additional Instructions: Needs to follow-up with PCP and get a referral to see neurologist DENA for EEG. Return to work on 01/01 Follow up with: GREGORIO CONNORS MD [Primary Care Provider] - 3-5 Days MARJAN TEJADA MD [Referring] - 3 Days Prescriptions: Aspirin 325 mg PO QDAY #30 tablet AtorvaSTATin [Lipitor] 40 mg PO QHS #30 tablet
--- NOTE | 2020-12-23 11:54 | Progress Note ---
Assessment and Plan - Patient Problems (1) Syncope and collapse Current Visit: Yes Status: Acute Plan to address problem: Patient admitted with recurrent syncope. 6 months ago, cardiac work-up for similar syncopal episode was negative. On the current admission, ECG and cardiac enzymes are normal, echocardiogram shows left ventricular ejection fraction greater than 65%. Recommend further evaluation as indicated for neuro syncope. In addition, as outpatient we will recommend a 30-day event monitor for further cardiac arrhythmia evaluation. Patient is stable for cardiac discharge. Subjective Date of service: 12/23/20 Interval history: Patient is comfortable, no further cardiac complaints. Ambulating in the room, no chest pain, no shortness of breath, no palpitations and no dizziness. Objective Vital Signs Temp Pulse Pulse Pulse Pulse Pulse Resp 12/23/20 10:24 73 12/23/20 09:23 98.0 F 73 18 12/23/20 04:16 62 64 73 12/23/20 04:11 98.4 F 56 L 16 12/23/20 00:11 98.6 F 76 18 12/22/20 22:59 12/22/20 22:40 12/22/20 22:39 12/22/20 21:06 12/22/20 20:48 98.3 F 79 16 12/22/20 16:31 75 12/22/20 16:18 98.6 F 74 18 12/22/20 16:00 75 12/22/20 14:31 98.6 F 71 18 12/22/20 14:28 71 18 12/22/20 12:20 12/22/20 12:10 12/22/20 12:00 BP BP BP BP Pulse Ox 12/23/20 10:24 136/82 12/23/20 09:23 136/82 91 12/23/20 04:16 132/72 131/80 116/75 12/23/20 04:11 137/80 100 12/23/20 00:11 115/65 93 12/22/20 22:59 160/81 12/22/20 22:40 160/81 12/22/20 22:39 160/81 12/22/20 21:06 98 12/22/20 20:48 124/82 92 12/22/20 16:31 12/22/20 16:18 143/76 93 12/22/20 16:00 97 12/22/20 14:31 12/22/20 14:28 135/79 94 12/22/20 12:20 144/80 95 12/22/20 12:10 144/80 93 12/22/20 12:00 146/80 94 - Physical Examination General: No Apparent Distress HEENT: Positive: PERRL Neck: Positive: neck supple Cardiac: Positive: Reg Rate and Rhythm Lungs: Positive: clear to auscultation Neuro: Positive: Grossly Intact Abdomen: Positive: Soft Skin: Positive: Clear Extremities: Absent: edema - Labs and Meds Lipids 12/23/20 Range/Units 04:38 Triglycerides 171 H (2-149) mg/dL Cholesterol 181 (50-199) mg/dL HDL Cholesterol 50 (40-59) mg/dL Cholesterol/HDL Ratio 3.62 %
== END 2020-12-23 19:00 | disposition home or self-care (01) ==
LOC: ED 22:26 → 4A 12-22 01:01
PROVIDERS: ADMIT Internal Medicine Geriatric Medicine; ATTEND Internal Medicine
DX: I16.0 Hypertensive urgency (principal); G93.40 Encephalopathy, unspecified; G45.9 Transient cerebral ischemic attack, unspecified; R55 Syncope and collapse; E87.6 Hypokalemia; I10 Essential (primary) hypertension; E78.5 Hyperlipidemia, unspecified; I25.2 Old myocardial infarction; H53.8 Other visual disturbances; F17.210 Nicotine dependence, cigarettes, uncomplicated; F07.81 Postconcussional syndrome; R29.700 NIHSS score 0; Z90.710 Acquired absence of both cervix and uterus; Z90.49 Acquired absence of other specified parts of digestive tract; Z79.82 Long term (current) use of aspirin; Z79.899 Other long term (current) drug therapy; Z98.890 Other specified postprocedural states
CPT/HCPCS: 36415; 70450; 70496; 70498; 70553; 71045; 80053; 80061; 80307; 81001; 82550; 82553; 83036; 84132; 84443; 84484; 85025; 85610; 85670; 85730; 93005; 93306; 93880; 96365; 96366; 96372; 96375; 96376; 97162; 99291; A9270; A9575; G0378; J1170; J1644; J2405; J3480; J7040; Q9967